=== PATIENT | female | born 1945 | race Caucasian/White ===

== ENCOUNTER → 2016-12-11 | Outpatient (CLI) | payer MEDICARE ==
[~2016-12-11] MED LIST: ACLI400A2 IH; AZIT500T PO; CA C1TAB26 PO; CETI10TA17 PO; DILT180C; DILT180C PO; FENO160T PO; FLUT16SP22 NS; FLUT1DIS26 IH; FLUT9.9S NS; FURO40TA4 PO; HYDR-34 PO; MECL-124 PO; MONT10TA21 PO; OMEP40CA36 PO; PANT20TA2 PO; PANT40TA; PANT40TA PO; POTA20TA8 PO; POTA8TAB PO; PRD20T PO; PRM25T PO; RANI300T4 PO; SLMFT1E INH; SPIR50TA27; TRAM50TA2 PO; VALS160T23 PO; VITA1200 SL
--- OUTSIDE RECORDS SUMMARY | 2016-12-11 13:52 | XMS REPORT | Continuity of Care Document ---
Author Author [facility] Organization [facility] Address Unknown Phone Unavailable Care Team Providers Care Scratch Finisher Name Role Phone CHARLES COLLINS DO PCP Insurance Providers Payer Name Policy Number Subscriber Name Relationship [employer] [id number] Anette Mcgrath 18 Self / Same As Patient [facility] [id number] Anette Mcgrath 18 Self / Same As Patient Advance Directives Directive Response Recorded Date/Time Advance Directives No 01/20/15 8:08am Health Care Power of Fire Pot Operator No 01/20/15 8:08am Organ Donor No 01/20/15 8:08am Resuscitation Status Full Code 01/20/15 8:08am Problems No known problems or medical conditions. Medications Medication Dose Route Sig Days/Qty Instructions Order Date Discontinued Date Status Spironolactone 07/27/09 11/29/12 Discontinued Pantoprazole Sodium 07/27/09 11/29/12 Discontinued Diltiazem Hcl 07/27/09 11/29/12 Discontinued Meclizine HCl 1 Tab PO QID PRN 20 Qty 07/27/09 11/29/12 Discontinued Promethazine HCl 1 Tab PO FOUR TIMES DAILY 14 Qty 07/27/09 11/29/12 Discontinued Azithromycin 500 Mg PO DAILY 11/29/12 01/13/15 Discontinued Prednisone 20 Mg PO DAILY 11/29/12 01/13/15 Discontinued Diltiazem HCl (Cardizem Cd) 1 Each PO DAILY 11/29/12 01/13/15 Discontinued Furosemide (Lasix) 1 Each PO DAILY 11/29/12 Active Pantoprazole Sodium 40 Mg PO DAILY 11/29/12 Active Ranitidine Hcl 300 Mg PO BEDTIME 11/29/12 Active Potassium Chloride 2 Tab PO DAILY 11/29/12 Active Fenofibrate (Lofibra) 1 Each PO DAILY 11/29/12 01/13/15 Discontinued Salmeterol Xinafoate/Fluticasone 0 INH DAILY ONE PUFF 11/29/12 Discontinued Ca Cmb No.1/Vit D3/B-6/Fa/B12 1 Each PO DAILY 11/29/12 Active Vitamin B Complex/Vit B12 1,200 Mcg SL DAILY 11/29/12 Active Fluticasone Propionate 1 [place] NS TWICE A DAY 11/29/12 01/13/15 Discontinued Acetaminophen/Hydrocodone Bitart 1 - 2 Ea PO NEEDED 12/05/12 Discontinued Valsartan 160 Mg PO DAILY 01/20/15 Active Fluticasone Propionate 9.9 Ml NS TWICE A DAY 01/20/15 Active Pantoprazole Sodium 40 Mg PO DAILY 90 Qty 01/20/15 Active Social History Social History Problem Response Recorded Date/Time Recent Foreign Travel No 01/20/2015 8:08am Smoking Status Never a Smoker 01/20/2015 8:04am Do you dip or chew tobacco? No 01/20/2015 8:04am Query Response Start Date Stop Date Smoking Status Never a Smoker Hospital Discharge Instructions No hospital discharge instructions. Plan of Care No plan of care. Functional Status No functional status results. Allergies, Adverse Reactions, Alerts Allergen Type Severity Reaction Status Last Updated Morphine Allergy Mild Active 07/27/09 NKANo Known Allergies Allergy Unknown Active 03/18/07 Immunizations Name Given Type Date of Pneumonia Vaccine 08/22/14 Historical Date of Influenza Vaccine 08/22/14 Historical Vital Signs Acute Vital Signs Vital Response Date/Time Temperature (Fahrenheit) 97.9 degrees F (97.6 - 99.5) Temperature (Calculated Celsius) 36.39796 degrees C (36.4 - 37.5) Temperature Source Tympanic Pulse Rate (adult) 93 bpm (60 - 90) Respiratory Rate 20 bpm (12 - 24) O2 Sat by Pulse Oximetry 94 % (88 - 100) Blood Pressure 151/92 mm Hg Pain Pain Intensity 0 Height (Feet) 5 feet Height (Inches) 1.00 inches Height (Calculated Centimeters) 154.111940 cm Weight (Pounds) 178 pounds Weight (Calculated Grams) 82932.443 gm Weight (Calculated Kilograms) 80.096278 kilograms Calculated BMI 36.46 Results Laboratory Results Test Name Result Units Flags Reference Collection Date/Time Result Date/ Time Comments Blood Urea Nitrogen 11 MG/DL 7-18 12/29/2014 12:30pm 12/29/2014 12: 52pm Creatinine 1.09 MG/DL 0.60-1.30 12/29/2014 12:30pm 12/29/2014 12:52pm BUN/Creatinine Ratio 10 12/29/2014 12:30pm 12/29/2014 12:52pm Estimat Glomerular Filtration Rate 50 12/29/2014 12:30pm 2014 12:52pm GFR INTERPRETIVE DATA UNITS FOR ESTIMATED GFR (eGFR): mL/min/1.73 M2 REFERENCE RANGE FOR ESTIMATED GFR (eGFR) eGFR NORMAL eGFR >60 MODERATELY DECREASED eGFR 30-59 SEVERLY DECREASED eGFR 15-29 KIDNEY FAILURE <15 (OR DIALYSIS) Procedures Procedure Status Date Provider(s) Diagnostic colonoscopy completed 01/20/15 JUAN HYATT MD Esophagogastroduodenoscopy (EGD) with dilation completed 01/20/15 JUAN HYATT MD Encounters Encounter Location Date/Time Registered [facility] 01/20/15 7:26am Discharged Recurring [facility] 01/14/15 1:00pm Registered Clinic [facility] 01/14/15 6:12am Registered Clinic [facility] 12/29/14 12:18pm
--- NOTE | 2016-12-11 14:15 | Diagnostic Imaging Report ---
PA and lateral views of the chest Indication: Cough and wheezing Findings: The lungs demonstrate minimal left basilar from opacity likely atelectasis. The heart size is normal. There is no effusion or pneumothorax The mediastinum and rosi appear unremarkable. Surgical clips in the upper abdomen seen. Impression: Minimal left basilar opacity left ureter to atelectasis. Dictated by: Dictated on workstation # [id number]
== END ==
LOC: RAD 13:48
PROVIDERS: ATTEND Nurse Practitioner
DX: R05 Cough (principal); R06.00 Dyspnea, unspecified; R06.2 Wheezing
CPT/HCPCS: 71020

== ENCOUNTER 2016-12-24 17:24 | Emergency (ER) | payer MEDICARE ==
[~2016-12-24] VITALS: Ht 152.4 cm; Wt 88.0 kg
[~2016-12-24 17:24] MED LIST changes: -TRAM50TA2 PO
--- NOTE | 2016-12-24 18:50 | ED Lower Extremity ---
General Chief Complaint: Lower Extremity Stated Complaint: R LEG INJ Nursing Triage Note: PT REPORTS YESTERDAY SHE WAS GETTING OUT OF HER CAR AND STEPPED BETWEEN CAR AND CURB. SHE STATES SHE DOESNT KNOW IF SHE TWISTED HER LEG OR WHAT HAPPENED, BUT IS NOW C/O L POSTERIOR THIGH PAIN WITH WEIGHT BEARING. Nursing Sepsis Screen: No Definite Risk Source: patient, family Exam Limitations: no limitations History of Present Illness Time seen by provider: 18:49 Initial Comments 71-year-old female patient presents to the emergency department with complaints of right posterior thigh pain and right leg pain after stepping out of her car yesterday. States she stepped between a curb and the car and is unsure she twisted the ankle/leg. Reports instant pain. Difficult to bear weight today. Onset: yesterday Pain/Injury Location: right leg, right thigh Method of Injury: unknown (possibly twisted the right leg.) Modifying Factors: Worse With Other (increased pain with ambulation) Allergies and Home Medications Allergies Coded Allergies: morphine (Unverified Allergy, Mild, 07/27/09) NKANo Known Allergies (Verified Allergy, Unknown, 03/18/07) Home Medications Aclidinium Lula 400 Mcg Aer.pow.ba, 1 PUFF IH BID, (Reported) Cetirizine HCl 10 Mg Tablet, 10 MG PO DAILY, (Reported) Fluticasone/Salmeterol 1 Each Blst.w.dev, 1 PUFF IH BID, (Reported) Furosemide 40 Mg Tablet, 40 MG PO DAILY, (Reported) Montelukast Sodium 10 Mg Tablet, 10 MG PO HS, (Reported) Omeprazole 40 Mg Capsule.dr, 40 MG PO BID, (Reported) Potassium Chloride 20 Meq Tab.er.prt, 20 MEQ PO DAILY, (Reported) Ranitidine Hcl 300 Mg Tablet, 300 MG PO HS, (Reported) Tramadol HCl 50 Mg Tablet, 50 MG PO Q4H PRN for PAIN, #14 Ref 0 Prescribed by: KAREN RODRIGUEZ on 12/24/161949 Valsartan 160 Mg Tablet, 160 MG PO DAILY, (Reported) Constitutional: no symptoms reported Respiratory: no symptoms reported Cardiovascular: no symptoms reported Musculoskeletal: see HPI, No back pain, joint pain, muscle pain, muscle stiffness, No neck pain Skin: No change in color, No lumps Psychiatric/Neurological: Denies Numbness, Denies Paresthesia, Denies Tingling , Denies Weakness All Other Systems Reviewed Negative Unless Noted: Yes (Negative excepted noted.) Past Svxacth-Odkejr-Zjsivh Hx Patient Social History Alcohol Use: Occasionally Uses Recreational Drug Use: No Smoking Status: Never a Smoker 2nd Hand Smoke Exposure: No Recent Foreign Travel: No Contact w/Someone Who Travel: No Recent Infectious Disease Expo: No Recent Hopitalizations: No Immunizations Up To Date Date of Pneumonia Vaccine: Aug 22, 2014 Date of Influenza Vaccine: Jun 24, 2015 Surgeries HX Surgeries: Yes (BILAT CARPAL TUNNEL) Surgeries: Bladder Surgery, Hysterectomy, Orthopedic, Tonsillectomy Respiratory Hx Respiratory Disorders: Yes Respiratory Disorders: COPD Cardiovascular Hx Cardiac Disorders: Yes Cardiac Disorders: Chronic Edema/Swelling, Hypertension Neurological Hx Neurological Disorders: No Reproductive System Hx Reproductive Disorders: No Genitourinary Hx Genitourinary Disorders: Yes Gastrointestinal Hx Gastrointestinal Disorders: No Musculoskeletal Hx Musculoskeletal Disorders: Yes (ARTHRITIS) Endocrine Hx Endocrine Disorders: No HEENT HX ENT Disorders: No Blood Transfusions Hx Blood Disorders: No Reviewed Nursing Assessment Reviewed/Agree w Nursing PMH: Yes Family Medical History Significant Family History: No Pertinent Family Hx Physical Exam Vital Signs Vital Sign - Last 12Hours 12/24/16 18:08 Temp 97.1 Pulse 85 Resp 18 B/P (MAP) 135/96 Pulse Ox 97 O2 Delivery Room Air Capillary Refill : Less Than 3 Seconds General Appearance: WD/WN, no apparent distress Cardiovascular: normal peripheral pulses Hips: bilateral hip non-tender, bilateral hip normal inspection, bilateral hip normal range of motion, bilateral hip no evidence of injury Legs: left leg non-tender, bilateral leg normal inspection, bilateral leg normal range of motion, bilateral leg no evidence of injury, right leg pain, right leg other (right posterior thigh tender to palpation with muscle spasm of the hamstring muscles. Right lower leg tender palpation over the lateral leg. Evidence of ecchymosis or swelling noted.) Knees: bilateral knee non-tender, bilateral knee normal inspection, bilateral knee normal range of motion, bilateral knee no evidence of injury Ankles: bilateral ankle non-tender, bilateral ankle normal inspection, bilateral ankle normal range of motion, bilateral ankle no evidence of injury Feet: bilateral foot non-tender, bilateral foot normal inspection, bilateral foot normal range of motion, bilateral foot no evidence of injury Neurologic/Tendon: normal sensation, normal motor functions, normal tendon functions, responds to pain, no evidence tendon injury Neurologic/Psychiatric: no motor/sensory deficits, alert, normal mood/affect, oriented x 3 Skin: normal color, warm/dry, No ecchymosis Progress/Results/Core Measures Results/Orders My Orders Orders - KAREN RODRIGUEZ Femur, Right, 2 Views (12/24/16 18:56) Tibia/Fibula, Right, 2 Views (12/24/16 18:56) Vital Signs/I&O Vital Sign - Last 12Hours 12/24/16 12/24/16 18:08 20:03 Temp 97.1 98.2 Pulse 85 99 Resp 18 18 B/P (MAP) 135/96 Pulse Ox 97 96 O2 Delivery Room Air Blood Pressure Mean: 109 Diagnostic Imaging Diagonstic Imaging: Xray Plain Films/CT/US/NM/MRI: femur Comments EXAMINATION: AP and lateral views of the right femur were obtained. FINDINGS: No fracture or dislocation. IMPRESSION: Negative right femur. Dictated by: Dictated on workstation # [id number] Reviewed: Reviewed by Me (radiology report reviewed by me) Diagonstic Imaging: Xray Plain Films/CT/US/NM/MRI: leg Comments EXAMINATION: AP and lateral views of the right tibia and fibula were obtained. FINDINGS: No fracture or dislocation. IMPRESSION: Negative right tibia and fibula. Dictated by: Dictated on workstation # [id number] Reviewed: Reviewed by Me (radiology report reviewed by me) Departure Communication Progress Notes Patient seen and evaluated. Patient denies need for pain medication at this time. 1954 Diagnostic findings discussed with the patient. Plan for discharge to home. Impression Impression: Primary Impression: Right hamstring muscle strain Qualified Codes: S76.311A - Strain of muscle, fascia and tendon of the posterior muscle group at thigh level, right thigh, initial encounter Disposition: HOME, SELF-CARE Condition: Improved Departure-Patient Inst. Decision time for Depature: 19:55 Referrals: CHARLES COLLINS DO (PCP/Family) Primary Care Physician Patient Instructions: Hamstring Muscle Strain (DC), Hamstring Stretches Add. Discharge Instructions: All discharge instructions reviewed with patient and/or family. Voiced understanding. Medications as prescribed. Tylenol extra strength [id number] as directed for pain. Ibuprofen 800 mg by mouth every 8 hours as needed for pain. Ice pack or heating pads as needed for pain. Elevate the right lower extremity on pillows. Follow-up with your primary care physician if no improvement in symptoms in 7- 10 days. Return to the emergency department for worsened symptoms or any other concerns. Scripts Tramadol HCl (Tramadol HCl) 50 Mg Tablet 50 MG PO Q4H Y for PAIN, #14 TAB 0 Refills Prov: KAREN RODRIGUEZ 12/24/16 KAREN RODRIGUEZ Dec 24, 2016 18:49
--- NOTE | 2016-12-24 19:40 | Diagnostic Imaging Report ---
INDICATION: Right lower leg pain. EXAMINATION: AP and lateral views of the right tibia and fibula were obtained. FINDINGS: No fracture or dislocation. IMPRESSION: Negative right tibia and fibula. Dictated by: Dictated on workstation # [id number]
--- NOTE | 2016-12-24 19:41 | Diagnostic Imaging Report ---
INDICATION: Right leg pain. EXAMINATION: AP and lateral views of the right femur were obtained. FINDINGS: No fracture or dislocation. IMPRESSION: Negative right femur. Dictated by: Dictated on workstation # [id number]
[2016-12-24] MEDS ORDERED: TRAM50TA2 PO (19:50)
[2016-12-24 20:03] VITALS: BP 137/94
--- OUTSIDE RECORDS SUMMARY | 2017-01-28 04:16 | XMS REPORT | Continuity of Care Document ---
Author Author [facility] Address Unknown Phone Unavailable Allergies Active Description Code Type Severity Reaction Onset Reported/Identified Relationship to Patient Clinical Status Yes NKANo Known Allergies NKA Miscellaneous Allergy Unknown N/ A 03/18/2007 Yes morphine [id number] Drug Allergy Mild N/A 07/27/2009 Yes morphine Drug Allergy 09/06/2012 Yes morphine Drug Allergy N/A N/A 09/06/2012 Medications Problems Date Dx Coded Attending Type Code Diagnosis Diagnosed By 03/25/2010 Ot 401.9 03/25/2010 Ot 530.81 03/25/2010 Ot 715.90 03/25/2010 Ot 722.52 03/25/2010 Ot 737.30 03/25/2010 Ot V57.1 09/06/2012 MANDY DECKER FIGUEROA A 274.9 GOUT 09/06/2012 RAJOTTE TUNNEL MINER, FIGUEROA A 491.21 BRONCHITIS AECB 09/06/2012 MANDY DECKER, FIGUEROA A 786.2 COUGH 09/06/2012 274.9 GOUT 09/06/2012 491.21 BRONCHITIS AECB 09/06/2012 786.2 COUGH 12/05/2012 Ot 575.0 ACUTE CHOLECYSTITIS 06/03/2013 477.9 RHINITIS 01/03/2014 SKYLAR PARK DO Ot 296.90 UNSPECIFIED EPISODIC MOOD DISORDER 01/03/2014 SKYLAR PARK DO Ot 327.23 OBSTRUCTIVE SLEEP APNEA (ADULT) (PEDIATR 01/03/2014 SKYLAR PARK DO Ot 401.9 HYPERTENSION NOS 03/25/2014 SKYLAR PARK DO Ot 327.23 OBSTRUCTIVE SLEEP APNEA (ADULT) (PEDIATR 08/19/2014 Ot 610.4 08/19/2014 Ot 611.72 08/19/2014 Ot 737.10 08/19/2014 Ot 737.30 08/19/2014 Ot 719.45 08/19/2014 Ot V76.12 08/19/2014 Ot 786.2 08/19/2014 Ot 793.1 08/19/2014 Ot 786.09 08/19/2014 Ot 786.2 08/19/2014 Ot V76.12 08/19/2014 Ot 715.94 08/19/2014 Ot 825.25 08/19/2014 Ot E000.8 08/19/2014 Ot E849.0 08/19/2014 Ot E928.9 08/19/2014 Ot 789.01 08/19/2014 Ot 789.00 08/19/2014 Ot 401.9 08/19/2014 Ot 574.20 08/19/2014 Ot V72.63 08/19/2014 Ot V72.83 08/19/2014 Ot V74.8 08/19/2014 ORENDER DO, CHARLES S Ot 496 08/19/2014 ORENDER DO, CHARLES S Ot 786.09 08/19/2014 OREND DO, CHARLES S Ot 786.2 08/19/2014 [facility] 7[facility].09 08/19/2014 [facility] Ot 786.2 08/19/2014 OREND DO, CHARLES S Ot 397.0 08/19/2014 OREND DO, CHARLES S Ot 424.0 08/19/2014 ORENDER DO, CHARLES S Ot 786.09 08/19/2014 ORENDER DO, CHARLES S Ot 719.47 08/19/2014 SAPNA GAMEZ Ot 427.9 08/19/2014 OREND DO, CHARLES S Ot 729.5 08/19/2014 [facility] Ot 729.81 08/19/2014 [facility]LES S Ot 786.09 08/19/2014 ORENDER DO, CHARLES S Ot 786.50 08/19/2014 ORENDER DO, CHARLES S Ot V64.3 08/19/2014 ORENDER DO, CHARLES S Ot 786.09 08/19/2014 ORENDER DO, CHARLES S Ot 786.50 08/19/2014 TERRY FIERRO, SCOTT Abrams Ot 782.3 08/19/2014 TERRY FIERRO, SCOTT Abrams Ot 845.00 08/19/2014 TERRY FIERRO, SCOTT Abrams Ot E928.9 08/25/2014 Ot 611.72 08/25/2014 Ot 737.10 08/25/2014 Ot 737.30 08/25/2014 Ot 719.45 08/25/2014 Ot V76.12 08/25/2014 Ot 786.2 08/25/2014 Ot 793.1 08/25/2014 Ot 786.09 08/25/2014 Ot 786.2 08/25/2014 Ot V76.12 08/25/2014 Ot 715.94 08/25/2014 Ot 825.25 08/25/2014 Ot E000.8 08/25/2014 Ot E849.0 08/25/2014 Ot E928.9 08/25/2014 Ot 789.01 08/25/2014 Ot 789.00 08/25/2014 Ot 401.9 08/25/2014 Ot 574.20 08/25/2014 Ot V72.63 08/25/2014 Ot V72.83 08/25/2014 Ot V74.8 08/25/2014 ORENDER DO, CHARLES S Ot 496 08/25/2014 ORENDER DO, CHARLES S Ot 786.09 08/25/2014 ORENDER DO, CHARLES S Ot 786.2 08/25/2014 ORENDER DO, CHARLES S Ot 786.09 08/25/2014 ORENDER DO, CHARLES S Ot 786.2 08/25/2014 ORENDER DO, CHARLES S Ot 397.0 08/25/2014 ORENDER DO, CHARLES S Ot 424.0 08/25/2014 ORENDER DO, CHARLES S Ot 786.09 08/25/2014 ORENDER DO, CHARLES S Ot 719.47 08/25/2014 SAPNA GAMEZ Ot 427.9 08/25/2014 ORENDER DO, CHARLES S Ot 729.5 08/25/2014 ORENDER DO, CHARLES S Ot 729.81 08/25/2014 ORENDER DO, CHARLES S Ot 786.09 08/25/2014 ORENDER DO, CHARLES S Ot 786.50 08/25/2014 ORENDER DO, CHARLES S Ot V64.3 08/25/2014 KARINA CORMIER, CHARLES S Ot 786.09 08/25/2014 CHEVY COLLINS DOLINE S Ot 786.50 08/25/2014 TERRY FIERRO, SCOTT Abrams Ot 782.3 08/25/2014 TERRY FIERRO, SCOTT Abrams Ot 845.00 08/25/2014 TERRY FIERRO, SCOTT Abrams Ot E928.9 08/26/2014 DENISEER CHEVY CORMIERLINE S Ot 722.52 08/26/2014 MARIANELANDER , CHARLES S Ot V57.1 09/03/2014 MARIANELANDER DO, CHARLES S Ot 722.52 09/03/2014 MARIANELANDER , CHARLES S Ot V57.1 10/09/2014 KARINA CORMIER CHARLES S Ot 722.52 LUMB/LUMBOSAC DISC DEGEN 10/09/2014 KARINA CROMIER CHARLES S Ot V57.1 PHYSICAL THERAPY NEC 10/21/2014 Ot 737.10 10/21/2014 Ot 737.30 10/21/2014 Ot 719.45 10/21/2014 Ot V76.12 10/21/2014 Ot 786.2 10/21/2014 Ot 793.1 10/21/2014 Ot 786.09 10/21/2014 Ot 786.2 10/21/2014 Ot V76.12 10/21/2014 Ot 715.94 10/21/2014 Ot 825.25 10/21/2014 Ot E000.8 10/21/2014 Ot E849.0 10/21/2014 Ot E928.9 10/21/2014 Ot 789.01 10/21/2014 Ot 789.00 10/21/2014 Ot 401.9 10/21/2014 Ot 574.20 10/21/2014 Ot V72.63 10/21/2014 Ot V72.83 10/21/2014 Ot V74.8 10/21/2014 DENISECONTRERAS CHARLES S Ot 496 10/21/2014 KARINA CHARLES S Ot 786.09 10/21/2014 MARIANELAGALICONTRERAS CHARLES S Ot 786.2 10/21/2014 KARINA CHARLES S Ot 786.09 10/21/2014 ORENDER DO, CHARLES S Ot 786.2 10/21/2014 ORENDER DO, CHARLES S Ot 397.0 10/21/2014 ORENDER DO, CHARLES S Ot 424.0 10/21/2014 ORENDER DO, CHARLES S Ot 786.09 10/21/2014 ORENDER DO, CHARLES S Ot 719.47 10/21/2014 SAPNA GAMEZ Ot 427.9 10/21/2014 ORENDER DO, CHARLES S Ot 729.5 10/21/2014 ORENDER DO, CHARLES S Ot 729.81 10/21/2014 ORENDER DO, CHARLES S Ot 786.09 10/21/2014 ORENDER DO, CHARLES S Ot 786.50 10/21/2014 ORENDER DO, CHARLES S Ot V64.3 10/21/2014 ORENDER DO, CHARLES S Ot 786.09 10/21/2014 ORENDER DO, CHARLES S Ot 786.50 10/21/2014 TERRY FIERRO, SCOTT P Ot 782.3 10/21/2014 TERRY FIERRO, SCOTT P Ot 845.00 10/21/2014 TERRY FIERRO, SCOTT P Ot E928.9 10/22/2014 [facility] S Ot 786.09 10/22/2014 ORENDER DO, CHARLES S Ot 786.50 10/22/2014 TERRY FIERRO, SCOTT P Ot 782.3 10/22/2014 TERRY FIERRO, SCOTT P Ot 845.00 10/22/2014 TERRY FIERRO, SCOTT P Ot E928.9 10/23/2014 [facility] CHARLES S Ot 786.09 10/23/2014 ORENDER DO, CHARLES S Ot 786.50 10/23/2014 TERRY FIERRO, SCOTT P Ot 782.3 10/23/2014 TERRY FIERRO, SCOTT P Ot 845.00 10/23/2014 TERRY FIERRO, SCOTT P Ot E928.9 10/23/2014 [facility] CHARLES S Ot 496 10/23/2014 [facility] CHARLES S Ot 496 10/26/2014 ORENDER DO, CHARLES S Ot 496 11/12/2014 Ot 737.10 11/12/2014 Ot 737.30 11/12/2014 Ot 719.45 11/12/2014 Ot V76.12 11/12/2014 Ot 786.2 11/12/2014 Ot 793.1 11/12/2014 Ot 786.09 11/12/2014 Ot 786.2 11/12/2014 Ot V76.12 11/12/2014 Ot 715.94 11/12/2014 Ot 825.25 11/12/2014 Ot E000.8 11/12/2014 Ot E849.0 11/12/2014 Ot E928.9 11/12/2014 Ot 789.01 11/12/2014 Ot 789.00 11/12/2014 Ot 401.9 11/12/2014 Ot 574.20 11/12/2014 Ot V72.63 11/12/2014 Ot V72.83 11/12/2014 Ot V74.8 11/12/2014 MARIANELANDER DO, CHARLES S Ot 496 11/12/2014 [facility] S Ot 786.09 11/12/2014 [facility]LES S Ot 786.2 11/12/2014 [facility]LES S Ot 786.09 11/12/2014 [facility]LES S Ot 786.2 11/12/2014 [facility]LES S Ot 397.0 11/12/2014 [facility]LES S Ot 424.0 11/12/2014 [facility]LES S Ot 786.09 11/12/2014 [facility]LES S Ot 719.47 11/12/2014 SAPNA GAMEZ Ot 427.9 11/12/2014 [facility] CHARLES S Ot 729.5 11/12/2014 [facility] CHARLES S Ot 729.81 11/12/2014 ORENDER DO, CHARLES S Ot 786.09 11/12/2014 ORENDER DO, CHARLES S Ot 786.50 11/12/2014 [facility] CHARLES S Ot V64.3 11/12/2014 [facility] CHARLES S Ot 786.09 11/12/2014 ORENDER DO, CHARLES S Ot 786.50 11/12/2014 TERRY FIERRO, SCOTT Abrams Ot 782.3 11/12/2014 TERRY FIERRO, SCOTT Abrams Ot 845.00 11/12/2014 TERRY FIERRO, SCOTT Abrams Ot E928.9 11/12/2014 ORENDER DO, CHARLES S Ot 496 11/19/2014 ORENDER DO, CHARLES S Ot 496 12/25/2014 Ot 786.09 01/20/2015 ORENDER DO, CHARLES S Ot 496 CHR AIRWAY OBSTRUCT NEC 01/20/2015 EDMAR FIERRO, UJAN Ot 401.9 HYPERTENSION NOS 01/20/2015 EDMAR FIERRO, JUAN Ot 455.0 INT HEMORRHOID W/O COMPL 01/20/2015 JUAN HYATT MD Ot 455.3 EXT HEMORRHOID W/O COMPL 01/20/2015 JUAN HYATT MD Ot 530.11 REFLUX ESOPHAGITIS 01/20/2015 EDMAR FIERRO, JUAN Ot 535.50 UNSP GASTRITIS GASTRODUODENITIS W/O ME 01/20/2015 EDMAR FIERRO, JUAN Ot 553.3 DIAPHRAGMATIC HERNIA 01/20/2015 EDMAR FIERRO, JUAN Ot 562.10 DIVERTICULOSIS COLON (W/O MENT OF HEMORR 01/20/2015 EDMAR FIERRO, JUAN Ot V76.51 SCREEN MAL NEOP-COLON 01/26/2015 EDMAR FIERRO, JUAN Ot 255.9 01/26/2015 EDMAR FIERRO, JUAN Ot 553.1 01/26/2015 JUAN HYATT MD Ot 571.8 01/26/2015 JUAN HYATT MD Ot 753.12 01/28/2015 MARIANELANDER DO, CHARLES S Ot 496 01/28/2015 ORENDER DO, CHARLES S Ot 496 01/28/2015 ORENDER DO, CHARLES S Ot 496 01/28/2015 ORENDER DO, CHARLES S Ot 496 01/28/2015 ORENDER DO, CHARLES S Ot 496 02/01/2015 MARIANELANDER DO, CHARLES S Ot 496 03/10/2015 JUAN HYATT MD Ot 255.9 03/10/2015 EDMAR FEIRRO, JUAN Ot 553.1 03/10/2015 EDMAR FIERRO, JUAN Ot 571.8 03/10/2015 EDMAR FIERRO, JUAN Ot 753.12 03/17/2015 ORENDER DO, CHARLES S Ot 496 04/09/2015 ORENDER DO, CHRALES S Ot 496 04/28/2015 ORENDER DO, CHARLES S Ot 496 CHR AIRWAY OBSTRUCT NEC 04/29/2015 LUCÍA NIEVES TUNNEL MINER Ot 278.00 04/29/2015 LUCÍA NIEVES TUNNEL MINER Ot 327.23 04/29/2015 LUCÍA NIEVES APRN Ot 496 04/29/2015 LUCÍA NIEVES APRN Ot 786.09 05/04/2015 ORENDER DO, CHARLES S Ot 496 05/04/2015 ORENDER DO, CHARLES S Ot 496 05/04/2015 ORENDER DO, CHARLES S Ot 496 05/04/2015 ORENDER DO, CHARLES S Ot 496 05/05/2015 ORENDER DO, CHARLES S Ot 496 05/12/2015 ORENDER DO, CHARLES S Ot 496 05/21/2015 LUCÍA NIEVES APRN Ot 278.00 05/21/2015 LUCÍA NIEVES TUNNEL MINER Ot 327.23 05/21/2015 LUCÍA NIEVES APRN Ot 496 05/21/2015 LUCÍA NIEVES TUNNEL MINER Ot 786.09 06/15/2015 ORENDER DO, CHARLES S Ot 496 06/23/2015 ORENDER DO, CHARLES S Ot 496 CHR AIRWAY OBSTRUCT NEC 07/21/2015 ORENDER DO, CHARLES S Ot Z12.31 10/01/2015 ORENDER DO, CHARLES S Ot R06.00 10/01/2015 ORENDER DO, CHARLES S Ot R07.9 12/19/2015 MONIQUE LEVI APRN Ot E86.9 VOLUME DEPLETION, UNSPECIFIED 12/19/2015 MONIQUE LEVI TUNNEL MINER Ot J44.9 CHRONIC OBSTRUCTIVE PULMONARY DISEASE, U 12/19/2015 LEVI, PETER J TUNNEL MINER Ot R00.0 TACHYCARDIA, UNSPECIFIED 12/19/2015 AMITA MONIQUE Marnie TUNNEL MINER Ot R06.00 DYSPNEA, UNSPECIFIED 12/21/2015 MONIQUE LEVI TUNNEL MINER Ot E86.9 12/21/2015 MONIQUE LEVI TUNNEL MINER Ot J44.9 12/21/2015 MONIQUE LEVI TUNNEL MINER Ot R00.0 12/21/2015 MONIQUE LEVI TUNNEL MINER Ot R06.00 07/04/2016 Ot 786.2 COUGH 07/04/2016 Ot 793.1 NOSP (ABN) FINDINGS ON RADIOLOGICAL OT 07/04/2016 Ot 786.09 RESPIRATORY ABNORM NEC 07/04/2016 Ot 786.2 COUGH 07/04/2016 Ot V76.12 OTH SCREEN MAMMO-MALIGN NEOPLASM OF MARGARETH 07/04/2016 Ot 715.94 OSTEOARTHROS NOS-HAND 07/04/2016 Ot 825.25 FX METATARSAL-CLOSED 07/04/2016 Ot E000.8 OTHER EXTERNAL CAUSE STATUS 07/04/2016 Ot E849.0 ACCIDENT IN HOME 07/04/2016 Ot E928.9 ACCIDENT NOS 07/04/2016 Ot 789.01 ABDOMINAL PAIN, RIGHT UPPER QUADRANT 07/04/2016 Ot 789.00 ABDOMINAL PAIN, UNSPECIFIED SITE 07/04/2016 Ot 401.9 HYPERTENSION NOS 07/04/2016 Ot 574.20 CHOLELITHIASIS NOS 07/04/2016 Ot V72.63 PRE-PROCEDURAL LABORATORY EXAMINATION 07/04/2016 Ot V72.83 EXAM PRE-OPERATIVE NEC 07/04/2016 Ot V74.8 SCREEN-BACTERIAL DIS NEC 07/04/2016 CHARLES COLLINS DO S Ot 496 CHR AIRWAY OBSTRUCT NEC 07/04/2016 CHEVY COLLINS DOLINE S Ot 786.09 RESPIRATORY ABNORM NEC 07/04/2016 ANDREEA COLLINS DOQUELINE S Ot 786.2 COUGH 07/04/2016 ANDREEA COLLINS DOQUELINE S Ot 786.09 RESPIRATORY ABNORM NEC 07/04/2016 ANDREEA COLLINS DOQUELINE S Ot 786.2 COUGH 07/04/2016 ANDREEA COLLINS DOQUELINE S Ot 397.0 TRICUSPID VALVE DISEASE 07/04/2016 CHEVY COLLINS DOLINE S Ot 424.0 MITRAL VALVE DISORDER 07/04/2016 ORENDER DO, CHARLES S Ot 786.09 RESPIRATORY ABNORM NEC 07/04/2016 MARIANELANDCONTRERAS CORMIER, CHARLES S Ot 719.47 JOINT PAIN-ANKLE 07/04/2016 ABYSUNILSAPNA FOX BARON Ot 427.9 CARDIAC DYSRHYTHMIA NOS 07/04/2016 MARIANELANDER , CHARLES S Ot 729.5 PAIN IN LIMB 07/04/2016 MARIANELANDER DO, CHARLES S Ot 729.81 SWELLING OF LIMB 07/04/2016 MARIANELANDER DO, CHARLES S Ot 786.09 RESPIRATORY ABNORM NEC 07/04/2016 MARIANELANDER DO, CHARLES S Ot 786.50 CHEST PAIN NOS 07/04/2016 KARINA CORMIER, CHARLES S Ot V64.3 NO PROC FOR REASONS NEC 07/04/2016 KARINA CORMIER, CHARLES S Ot 786.09 RESPIRATORY ABNORM NEC 07/04/2016 KARINA CORMIER, CHARLES S Ot 786.50 CHEST PAIN NOS 07/04/2016 TERRY FIERRO, SCOTT Abrams Ot 782.3 EDEMA 07/04/2016 TERRY FIERRO, SCOTT Abrams Ot 845.00 SPRAIN OF ANKLE NOS 07/04/2016 SCOTT STEWART MD Ot E928.9 ACCIDENT NOS 07/04/2016 Ot 786.09 RESPIRATORY ABNORM NEC 07/04/2016 EDMAR FIERRO, JUAN Ot 255.9 ADRENAL DISORDER N0S 07/04/2016 EDMAR FIERRO, JUAN Ot 553.1 UMBILICAL HERNIA 07/04/2016 EDMAR FIERRO, JUAN Ot 571.8 CHRONIC LIVER DIS NEC 07/04/2016 EDMAR FIERRO, JUAN Ot 753.12 POLYCYSTIC KIDNEY, UNSPECIFIED TYPE 07/04/2016 EDMAR FIERRO, JUAN Ot V72.84 EXAM PRE-OPERATIVE NOS 07/04/2016 LUCÍA NIEVES APRN Ot 278.00 OBESITY, NOS 07/04/2016 LUCÍA NIEVES TUNNEL MINER Ot 327.23 OBSTRUCTIVE SLEEP APNEA (ADULT) ( PEDIATR 07/04/2016 LUCÍA NIEVES E TUNNEL MINER Ot 496 CHR AIRWAY OBSTRUCT NEC 07/04/2016 LUCÍA NIEVES TUNNEL MINER Ot 786.09 RESPIRATORY ABNORM NEC 07/04/2016 KARINA CORMIER, CHARLES S Ot Z12.31 ENCNTR SCREEN MAMMOGRAM FOR MALIGNANT NE 07/04/2016 ORENDER DO, CHARLES S Ot R06.00 DYSPNEA, UNSPECIFIED 07/04/2016 ORENDER DO, CHARLES S Ot R07.9 CHEST PAIN, UNSPECIFIED 07/05/2016 ORENDER DO, CHARLES S Ot Z12.31 ENCNTR SCREEN MAMMOGRAM FOR MALIGNANT NE 07/05/2016 ORENDER DO, CHARLES S Ot Z12.31 ENCNTR SCREEN MAMMOGRAM FOR MALIGNANT NE 07/10/2016 ORENDER DO, CHARLES S Ot Z12.31 ENCNTR SCREEN MAMMOGRAM FOR MALIGNANT NE 07/13/2016 ORENDER DO, CHARLES S Ot Z12.31 ENCNTR SCREEN MAMMOGRAM FOR MALIGNANT NE 12/11/2016 ORENDER DO, CHARLES S Ot Z12.31 ENCNTR SCREEN MAMMOGRAM FOR MALIGNANT NE 12/11/2016 ORENDER DO, CHARLES S Ot R06.00 DYSPNEA, UNSPECIFIED 12/11/2016 ORENDER DO, CHARLES S Ot R07.9 CHEST PAIN, UNSPECIFIED 12/11/2016 ORENDER DO, CHARLES S Ot Z12.31 ENCNTR SCREEN MAMMOGRAM FOR MALIGNANT NE 12/12/2016 KERI GUTIÉRREZ TUNNEL MINER Ot R05 COUGH 12/12/2016 KERI GUTIÉRREZ TUNNEL MINER Ot R06.00 DYSPNEA, UNSPECIFIED 12/12/2016 MARLA KERI N TUNNEL MINER Ot R06.2 WHEEZING 12/12/2016 KERI GUTIÉRREZ TUNNEL MINER Ot R05 COUGH 12/12/2016 KERI GUTIÉRREZ TUNNEL MINER Ot R06.00 DYSPNEA, UNSPECIFIED 12/12/2016 KERI GUTIÉRREZ TUNNEL MINER Ot R06.2 WHEEZING 12/24/2016 KAREN VEGA Ot I10 ESSENTIAL (PRIMARY) HYPERTENSION 12/24/2016 KAREN VEGA Ot J44.9 CHRONIC OBSTRUCTIVE PULMONARY DISEASE, U 12/24/2016 KAREN VEGA Ot S76.311A STRAIN MSL/FASC/TND POST GRP AT THI LEV, 12/24/2016 KAREN VEGA Ot S86.901A UNSP INJ UNSP MUSC/TEND AT LOWER LEG LEV 12/24/2016 KAREN VEGA Ot X50.9XXA OTHER AND UNSPECIFIED OVREXRTN OR STRNOU 12/24/2016 KAREN VEGA Ot Y92.414 LOCAL RESIDENTIAL OR BUSINESS STREET 12/24/2016 KAREN VEGA Ot Y99.8 OTHER EXTERNAL CAUSE STATUS 12/24/2016 KAREN VEGA Ot Z79.899 OTHER BUNDLE BREAKER (CURRENT) DRUG THERAPY 12/26/2016 KAREN VEGA Ot I10 ESSENTIAL (PRIMARY) HYPERTENSION 12/26/2016 KAREN VEGA Ot J44.9 CHRONIC OBSTRUCTIVE PULMONARY DISEASE, U 12/26/2016 KAREN VEGA Ot S76.311A STRAIN MSL/FASC/TND POST GRP AT THI LEV, 12/26/2016 KAREN VEGA Ot S86.901A UNSP INJ UNSP MUSC/TEND AT LOWER LEG LEV 12/26/2016 KAREN VEGA Ot X50.9XXA OTHER AND UNSPECIFIED OVREXRTN OR STRNOU 12/26/2016 KAREN VEGA Ot Y92.414 LOCAL RESIDENTIAL OR BUSINESS STREET 12/26/2016 KAREN VEGA Ot Y99.8 OTHER EXTERNAL CAUSE STATUS 12/26/2016 KAREN VEGA Ot Z79.899 OTHER BUNDLE BREAKER (CURRENT) DRUG THERAPY 01/03/2017 KERI GUTIÉRREZ TUNNEL MINER Ot R05 COUGH 01/03/2017 KERI GUTIÉRREZ TUNNEL MINER Ot R06.00 DYSPNEA, UNSPECIFIED 01/03/2017 KERI GUTIÉRREZ TUNNEL MINER Ot R06.2 WHEEZING 01/11/2017 KERI GUTIÉRREZ TUNNEL MINER Ot R05 COUGH 01/11/2017 KERI GUTIÉRREZ TUNNEL MINER Ot R06.00 DYSPNEA, UNSPECIFIED 01/11/2017 KERI GUTIÉRREZ TUNNEL MINER Ot R06.2 WHEEZING 01/15/2017 Ot V76.12 OTH SCREEN MAMMO-MALIGN NEOPLASM OF MARGARETH 01/15/2017 Ot 715.94 OSTEOARTHROS NOS-HAND 01/15/2017 Ot 825.25 FX METATARSAL-CLOSED 01/15/2017 Ot E000.8 OTHER EXTERNAL CAUSE STATUS 01/15/2017 Ot E849.0 ACCIDENT IN HOME 01/15/2017 Ot E928.9 ACCIDENT NOS 01/15/2017 Ot 789.01 ABDOMINAL PAIN, RIGHT UPPER QUADRANT 01/15/2017 Ot 789.00 ABDOMINAL PAIN, UNSPECIFIED SITE 01/15/2017 Ot 401.9 HYPERTENSION NOS 01/15/2017 Ot 574.20 CHOLELITHIASIS NOS 01/15/2017 Ot V72.63 PRE-PROCEDURAL LABORATORY EXAMINATION 01/15/2017 Ot V72.83 EXAM PRE-OPERATIVE NEC 01/15/2017 Ot V74.8 SCREEN-BACTERIAL DIS NEC 01/15/2017 KARINA CORMIER CHARLES S Ot 496 CHR AIRWAY OBSTRUCT NEC 01/15/2017 KARINA CORMIER CHARLES S Ot 786.09 RESPIRATORY ABNORM NEC 01/15/2017 KARINA CORMIER CHARLES S Ot 786.2 COUGH 01/15/2017 KARINA CORMIER CHARLES S Ot 786.09 RESPIRATORY ABNORM NEC 01/15/2017 KARINA CORMIER CHARLES S Ot 786.2 COUGH 01/15/2017 KARINA CORMIER CHARLES S Ot 397.0 TRICUSPID VALVE DISEASE 01/15/2017 ANDREEA COLLINS DOQUELINE S Ot 424.0 MITRAL VALVE DISORDER 01/15/2017 KARINA CORMIER, CHARLES S Ot 786.09 RESPIRATORY ABNORM NEC 01/15/2017 MARIANELANASIMA CORMIER CHARLES S Ot 719.47 JOINT PAIN-ANKLE 01/15/2017 SAPNA GAMEZ Ot 427.9 CARDIAC DYSRHYTHMIA NOS 01/15/2017 KARINA CORMIER CHARLES S Ot 729.5 PAIN IN LIMB 01/15/2017 KARINA CORMIER CHARLES S Ot 729.81 SWELLING OF LIMB 01/15/2017 ANDREEA COLLINS DOQUELINE S Ot 786.09 RESPIRATORY ABNORM NEC 01/15/2017 KARINA CORMIER, CHARLES S Ot 786.50 CHEST PAIN NOS 01/15/2017 CHEVY COLLINS DOLINE S Ot V64.3 NO PROC FOR REASONS NEC 01/15/2017 KARINA CORMIER CHARLES S Ot 786.09 RESPIRATORY ABNORM NEC 01/15/2017 ANDREEA COLLINS DOQUELINE S Ot 786.50 CHEST PAIN NOS 01/15/2017 SCOTT STEWART MD Ot 782.3 EDEMA 01/15/2017 SCOTT STEWART MD Ot 845.00 SPRAIN OF ANKLE NOS 01/15/2017 TERRY FIERRO, SCOTT Abrams Ot E928.9 ACCIDENT NOS 01/15/2017 Ot 786.09 RESPIRATORY ABNORM NEC 01/15/2017 JUAN HYATT MD Ot 255.9 ADRENAL DISORDER N0S 01/15/2017 JUAN HYATT MD Ot 553.1 UMBILICAL HERNIA 01/15/2017 JUAN HYATT MD Ot 571.8 CHRONIC LIVER DIS NEC 01/15/2017 JUAN HYATT MD Ot 753.12 POLYCYSTIC KIDNEY, UNSPECIFIED TYPE 01/15/2017 JUAN HYATT MD Ot V72.84 EXAM PRE-OPERATIVE NOS 01/15/2017 LUCÍA NIEVES APRN Ot 278.00 OBESITY, NOS 01/15/2017 LUCÍA NIEVES APRN Ot 327.23 OBSTRUCTIVE SLEEP APNEA (ADULT) ( PEDIATR 01/15/2017 LUCÍA NIEVES APRN Ot 496 CHR AIRWAY OBSTRUCT NEC 01/15/2017 LUCÍA NIEVES APRN Ot 786.09 RESPIRATORY ABNORM NEC 01/15/2017 CHARLES COLLINS DO S Ot Z12.31 ENCNTR SCREEN MAMMOGRAM FOR MALIGNANT NE 01/15/2017 CHARLES COLLINS DO S Ot R06.00 DYSPNEA, UNSPECIFIED 01/15/2017 CHARLES COLLINS DO S Ot R07.9 CHEST PAIN, UNSPECIFIED 01/15/2017 DENISEER ANDREEA CORMIERCHARLES S Ot Z12.31 ENCNTR SCREEN MAMMOGRAM FOR MALIGNANT NE 01/15/2017 KERI GUTIÉRREZ APRN Ot R05 COUGH 01/15/2017 KERI GUTIÉRREZ APRN Ot R06.00 DYSPNEA, UNSPECIFIED 01/15/2017 KERI GUTIÉRREZ APRN Ot R06.2 WHEEZING 01/17/2017 KERI GUTIÉRREZ APRN Ot J44.9 CHRONIC OBSTRUCTIVE PULMONARY DISEASE, U 01/17/2017 KERI GUTIÉRREZ APRN Ot R05 COUGH Procedures Code [place] [id number] OXIM[employer]RY 2011 Results Encounters ACCT No. Visit Date/Time Discharge Status Pt. Type Provider Facility Loc./Unit Complaint [id number] 09/06/2012 08:26:00 09/06/2012 23: 59:59 CLS Outpatient FIGUEROA GALVAN APRN [id number] 06/03/2013 08:49:00 Document Registration
== END 2016-12-24 20:00 | disposition home or self-care (01) ==
LOC: EDUNIT# 17:24 → ER 17:28
DX: S76.311A Strain of muscle, fascia and tendon of the posterior muscle group at thigh level, right thigh, initial encounter (principal); J44.9 Chronic obstructive pulmonary disease, unspecified; I10 Essential (primary) hypertension; Z79.899 Other long term (current) drug therapy; X50.9XXA Other and unspecified overexertion or strenuous movements or postures, initial encounter; Y92.414 Local residential or business street as the place of occurrence of the external cause; Y99.8 Other external cause status
CPT/HCPCS: 73552; 73590; 99283

== ENCOUNTER → 2017-01-15 | Outpatient (CLI) | payer MEDICARE ==
[~2017-01-15] MED LIST changes: +TRAM50TA2 PO
--- NOTE | 2017-01-15 19:24 | Diagnostic Imaging Report ---
PA and lateral views of the chest. INDICATION: Cough and shortness of breath. COPD. COMPARISON: 12/11/16. FINDINGS: There are minimal left basilar atelectatic changes. The heart size is normal. No effusion or pneumothorax. The mediastinum and rosi appear unremarkable. IMPRESSION: Minimal left basilar atelectasis. Dictated by: Dictated on workstation # [id number]
== END ==
LOC: RAD 15:46
PROVIDERS: ATTEND Nurse Practitioner
DX: R05 Cough (principal); J44.9 Chronic obstructive pulmonary disease, unspecified
CPT/HCPCS: 71020

== ENCOUNTER 2017-03-22 12:49 | Outpatient (RCR) | payer MEDICARE | END 2017-03-22 14:47 | disposition home or self-care (01) | PROVIDERS: ATTEND Family Medicine | DX: M51.16 Intervertebral disc disorders with radiculopathy, lumbar region (principal) ==

== ENCOUNTER 2017-05-04 12:14 | Emergency (ER) | payer MEDICARE ==
[~2017-05-04] VITALS: Ht 152.4 cm; Wt 93.9 kg
[2017-05-04] MEDS ORDERED: DULO60CA58 (12:28)
[2017-05-04] MEDS ORDERED: GABA-488 (12:28)
[2017-05-04] MEDS ORDERED: HYDROcodone/APAP 5 MG/325 MG (LORTAB) TAB PO STA (12:31)
--- NOTE | 2017-05-04 12:37 | ED Lower Extremity ---
General Chief Complaint: Lower Extremity Stated Complaint: POSS BLOOD CLOT IN LT LEG PER DR WEBER OFF History of Present Illness Time seen by provider: 12:25 Initial Comments Patient reports on 05/12/17 she was evaluated by Dr. Weber for left lower extremity pain. There is concerns over a possible DVT and she had labs. Dr. Weber's office contacted her today and recommended she follow up in the emergency department for DVT evaluation based on the lab results. She is mainly complaining of pain in the lateral aspect of the left hamstring, no calf pain. She does report occasionally having cold feelings in both feet, she has had more pedal edema recently and stopped her Lasix due to side effects. She denies any paresthesias or radicular symptoms in her lower extremities. She did have a right hamstring injury in the last 6 months. She denies any recent extended sedentary situations, she does all of her own ADLs, she has had no recent travel. She is not taking any blood thinners or aspirin products. D-dimer from Mag lab on 05/04/17 281. Onset: other (05/02/17) Pain/Injury Location: left thigh, left foot, left ankle Method of Injury: unknown Modifying Factors: Improves With Rest Allergies and Home Medications Allergies Coded Allergies: morphine (Unverified Allergy, Mild, 07/27/09) NKANo Known Allergies (Verified Allergy, Unknown, 03/18/07) Home Medications Aclidinium [place] 400 Mcg Aer.pow.ba, 1 PUFF IH BID, (Reported) Cetirizine HCl 10 Mg Tablet, 10 MG PO DAILY, (Reported) Duloxetine HCl 60 Mg Capsule., #30 (Reported) Fluticasone/Salmeterol 1 Each Blst.w.dev, 1 PUFF IH BID, (Reported) Furosemide 40 Mg Tablet, 40 MG PO DAILY, (Reported) Gabapentin 300 Mg Capsule, #60 (Reported) Magnesium Oxide 400 Mg Tablet, 800 MG PO DAILY, #20 Ref 0 Prescribed by: EDITH AREVALO on 05/04/17 1310 Montelukast Sodium 10 Mg Tablet, 10 MG PO HS, (Reported) Omeprazole 40 Mg Capsule.dr, 40 MG PO BID, (Reported) Potassium Chloride 20 Meq Tab.er.prt, 20 MEQ PO DAILY, (Reported) Ranitidine Hcl 300 Mg Tablet, 300 MG PO HS, (Reported) Tramadol HCl 50 Mg Tablet, 50 MG PO Q4H PRN for PAIN, #14 Ref 0 Prescribed by: KAREN RODRIGUEZ on 12/24/161949 Valsartan 160 Mg Tablet, 160 MG PO DAILY, (Reported) Constitutional: no symptoms reported, see HPI Respiratory: see HPI, dyspnea on exertion Cardiovascular: no symptoms reported, see HPI Genitourinary: no symptoms reported, see HPI Musculoskeletal: see HPI, muscle pain (left lower extremity) Skin: see HPI, other (swelling left lower extremity) All Other Systems Reviewed Negative Unless Noted: Yes Past Gjdxedh-Dmxcoh-Jvvlhj Hx Patient Social History Alcohol Use: Denies Use Recreational Drug Use: No Smoking Status: Never a Smoker 2nd Hand Smoke Exposure: No Recent Foreign Travel: No Contact w/Someone Who Travel: No Recent Hopitalizations: No Immunizations Up To Date Date of Pneumonia Vaccine: Aug 22, 2014 Date of Influenza Vaccine: Jun 24, 2015 Surgeries HX Surgeries: Yes (BILAT CARPAL TUNNEL) Surgeries: Bladder Surgery, Hysterectomy, Orthopedic, Tonsillectomy Respiratory Hx Respiratory Disorders: Yes Respiratory Disorders: COPD Cardiovascular Hx Cardiac Disorders: Yes Cardiac Disorders: Chronic Edema/Swelling, Hypertension Neurological Hx Neurological Disorders: No Reproductive System Hx Reproductive Disorders: No Genitourinary Hx Genitourinary Disorders: Yes Gastrointestinal Hx Gastrointestinal Disorders: No Musculoskeletal Hx Musculoskeletal Disorders: Yes (ARTHRITIS) Endocrine Hx Endocrine Disorders: No HEENT HX ENT Disorders: No Blood Transfusions Hx Blood Disorders: No Reviewed Nursing Assessment Reviewed/Agree w Nursing PMH: Yes Family Medical History Significant Family History: No Pertinent Family Hx Physical Exam Vital Signs Vital Sign - Last 12Hours 05/04/17 12:18 Temp 98.9 Pulse 100 Resp 18 B/P (MAP) 136/84 Pulse Ox 96 O2 Delivery Room Air Capillary Refill : General Appearance: WD/WN, no apparent distress HEENT: normal ENT inspection, TMs normal, pharynx normal Neck: non-tender, full range of motion, supple, normal inspection Cardiovascular: normal peripheral pulses, regular rate, rhythm, No no edema (1 + bilateral nonpitting edema), no JVD, no murmur, other (dorsalis pedis pulses 2 + and symmetric, posterior tibialis 1+ and symmetric) Respiratory: chest non-tender, lungs clear, normal breath sounds, other (SOA, mild with activity and rest, chronic and unchanged per patient.) Gastrointestinal: normal bowel sounds, non tender, soft Legs: bilateral leg swelling, bilateral leg other (multiple varicosities bilateral lower extremities) Knees: left knee non-tender, left knee normal range of motion, left knee no evidence of injury, left knee bone tenderness (lateral aspect at the joint line. ), left knee joint effusion (trace), left knee pain (lateral joint line), left knee swelling (popliteal cyst) Ankles: bilateral ankle non-tender, bilateral ankle normal range of motion, bilateral ankle no evidence of injury, bilateral ankle swelling (1+ nonpitting edema) Feet: bilateral foot non-tender, bilateral foot normal range of motion, bilateral foot no evidence of injury Neurologic/Psychiatric: no motor/sensory deficits, alert, normal mood/affect, oriented x 3 Skin: normal color, warm/dry Lymphatic: no adenopathy Progress/Results/Core Measures Results/Orders My Orders Orders - EDITH AREVALO Venous Lower Ext Lt (05/04/17 12:31) Hydrocodone/Apap 5/325 Tablet (Lortab 5 (05/04/17 12:31) Magnesium Oxide Tablet (Mag Ox Tablet) (05/04/17 13:00) Magnesium Oxide Tablet (Mag Ox Tablet) (05/04/17 13:00) Medications Given in ED Current Medications Medications Dose Ordered Sig/Yasmin Route Start Time Stop Time Status Last Admin Dose Admin Magnesium Oxide 400 mg ONCE ONCE PO 05/04/17 13:00 05/04/17 13:01 DC 05/04/17 13:00 400 MG Magnesium Oxide 400 mg ONCE ONCE PO 05/04/17 13:00 05/04/17 13:01 DC 05/04/17 13:01 400 MG Vital Signs/I&O Vital Sign - Last 12Hours 05/04/17 05/04/17 12:18 13:15 Temp 98.9 98.9 Pulse 100 100 Resp 18 18 B/P (MAP) 136/84 Pulse Ox 96 96 O2 Delivery Room Air Progress Note : Time: 12:25 Progress Note Initial evaluation completed, recommended venous ultrasound left lower extremity and reevaluation. Hydrocodone/APAP 5/325 mg 1 by mouth now for pain. 1310 patient reports decreased pain. Venous ultrasound was negative for DVT, results reviewed with patient. Magnesium oxide 400 mg 2 by mouth for hypo- magnesium. Labs from mag lab drawn on 05/02/17 showed a magnesium of 0.8. CBC thyroid all within normal ESR 32 and d-dimer 281. Discussed with patient that her pain in the left lower extremity could be related to the low magnesium level. 1320 discharge planning reviewed with the patient and her daughter, with recommendation for continuing magnesium through the weekend, all up with Dr. WEBER next week. We'll go ahead and start the patient on enteric coated baby aspirin daily. Departure Impression Impression: Primary Impression: Synovial cyst of popliteal space [Dyson], left knee Additional Impressions: Hypomagnesemia Myalgia Disposition: HOME, SELF-CARE Condition: Improved Departure-Patient Inst. Decision time for Depature: 13:00 Referrals: CHARLES WEBER DO (PCP/Family) Primary Care Physician Patient Instructions: Low Magnesium Level (DC), Muscle and Bone Pain (DC) Add. Discharge Instructions: Increase oral hydration, one bottle of water every 2-3 hours while awake. Take magnesium as directed. Call Dr. Weber's office on Sunday for follow-up early next week and lab follow -up. Return to emergency department for increased pain in the lower extremities, fever greater than 101, increased shortness of air, or new problems. Enteric-coated aspirin 81 mg 1 daily. Activity as tolerated. Tylenol 650 mg every 6 hours as needed for pain. All discharge instructions reviewed with patient and/or family. Voiced understanding. Scripts Magnesium Oxide (Magnesium Oxide) 400 Mg Tablet 800 MG PO DAILY, #20 TAB 0 Refills Prov: EDITH AREVALO 05/04/17 Copy Copies To 1: CHARLES WEBER AMY ARNP May 04, 2017 12:37
[2017-05-04] MEDS ORDERED: MAGNESIUM OXIDE (MAG-OX)400 MG TAB PO ONE ×2 (13:00)
[2017-05-04] MEDS ORDERED: MAGN400T6 PO (13:10)
[2017-05-04 13:15] VITALS: BP 136/84
--- NOTE | 2017-05-04 13:41 | Diagnostic Imaging Report ---
PROCEDURE: US left lower extremity venous. TECHNIQUE: Multiple real-time grayscale images were obtained over the left lower extremity in various projections. Additional duplex Doppler and color Doppler images were also obtained. INDICATION: Left leg pain and swelling. COMPARISON: 12/31/2013. FINDINGS: The left common femoral, femoral and popliteal veins are patent without evidence of DVT. Visualized proximal aspects of the greater saphenous, deep femoral, posterior tibial and peroneal veins are also patent. All of the evaluated deep venous structures demonstrate normal compressibility and waveform augmentation where applicable. Anechoic fluid collection posterior to the knee in the popliteal fossa likely represents a small Dyson's cyst, and measures 3.5 x 1.8 x 1.8 cm. IMPRESSION: No left lower extremity deep venous thrombosis (DVT). Dictated by: Dictated on workstation # [id number]
== END 2017-05-04 13:15 | disposition home or self-care (01) ==
LOC: EDUNIT# 12:14 → ER 12:16
DX: M71.22 Synovial cyst of popliteal space [Baker], left knee (principal); M79.1 Myalgia; E83.42 Hypomagnesemia; J44.9 Chronic obstructive pulmonary disease, unspecified; I10 Essential (primary) hypertension; M19.90 Unspecified osteoarthritis, unspecified site; Z90.710 Acquired absence of both cervix and uterus
CPT/HCPCS: 99283

== ENCOUNTER → 2017-05-31 | Outpatient (CLI) | payer MEDICARE, BC ==
[~2017-05-31] MED LIST changes: +DULO60CA58; +GABA-488; +MAGN400T6 PO
== END ==
LOC: RAD 09:20
PROVIDERS: ATTEND Family Medicine
DX: R06.00 Dyspnea, unspecified (principal); R00.0 Tachycardia, unspecified
CPT/HCPCS: 93306

== ENCOUNTER → 2017-07-04 | Outpatient (CLI) | payer MEDICARE, BC ==
[~2017-07-04] VITALS: Ht 152.4 cm; Wt 97.1 kg
[~2017-07-04] MED LIST changes: +REGADENOSON 0.4 MG/5 ML SYR (LEXISCAN) IV ONE
[2017-07-04] MEDS: CATHETER FLUSH 10 ML SYR IV PRN ×2 (12:57→14:13)
[2017-07-04 14:07] VITALS: BP 151/82
--- NOTE | 2017-07-06 01:27 | STRESS TEST ---
DATE OF SERVICE: 07/04/2017 LEXISCAN MYOVIEW STRESS TEST REPORT REFERRING PHYSICIAN: Dr. Weber. Baseline heart rate is 79, baseline blood pressure is 150/80. Baseline EKG is sinus rhythm with no ischemic changes. In summary, the patient was injected with 9.65 mCi of technetium-99 Myoview and the resting images were obtained, then the patient received 0.4 mg of Lexiscan followed by 27.8 mCi of technetium-99 Myoview. Throughout the test, there were no EKG changes. The resting and stressed images were reviewed and compared in the short axis, horizontal long axis, and vertical long axis views. Review of the images showed breast attenuation affecting the quality of the images. There is mild decreased uptake at the mid to apical anterior wall, after the attenuation correction, there was no significant ischemia noted. SSS is 0. TID value 1.22. On the gated images, the left ventricle appeared to be in normal size with hypercontractility. Calculated ejection fraction is 93%. CONCLUSION: 1. The patient tolerated Lexiscan well. 2. Breast attenuation affecting the quality of the images with using attenuation correction protocol, no ischemia was noted. 3. Normal left ventricle with hyperactive contractility, calculated ejection fraction 93%. 4. TID value of 1.22, probably falsely elevated due to the small left ventricular size. Job ID: [id number] DocumentID: [id number] Dictated Date: 07/05/2017 14:56:55 [employer] Date: 07/05/2017 22:45:29 Dictated By: FELIPE ANDERSON MD
== END ==
LOC: CARD 12:06
PROVIDERS: ATTEND Internal Medicine Cardiovascular Disease
DX: R07.9 Chest pain, unspecified (principal); R06.00 Dyspnea, unspecified; R00.0 Tachycardia, unspecified; I10 Essential (primary) hypertension; J44.9 Chronic obstructive pulmonary disease, unspecified
CPT/HCPCS: 78452; 93017

== ENCOUNTER → 2017-08-14 | Outpatient (CLI) | payer MEDICARE, BC ==
[~2017-08-14] MED LIST changes: -REGADENOSON 0.4 MG/5 ML SYR (LEXISCAN) IV ONE
--- NOTE | 2017-08-14 19:16 | Diagnostic Imaging Report ---
PA and lateral views of the chest. INDICATION: Shortness of breath. FINDINGS: There is mild right basilar atelectasis and eventration of the right hemidiaphragm. The left lung is clear. The heart size is normal. No effusion or pneumothorax. The mediastinum and rosi appear unremarkable. Lower thoracic spine degenerative changes seen. IMPRESSION: Eventration of the right hemidiaphragm with mild right basilar atelectasis. Dictated by: Dictated on workstation # [id number]
== END ==
LOC: RAD 12:13
PROVIDERS: ATTEND Nurse Practitioner Family
DX: J98.11 Atelectasis (principal); Q79.1 Other congenital malformations of diaphragm; J44.9 Chronic obstructive pulmonary disease, unspecified
CPT/HCPCS: 71020

== ENCOUNTER → 2017-08-15 | Outpatient (CLI) | payer MEDICARE, BC ==
[~2017-08-15] MED LIST changes: +RT-ALBUTEROL SULF 2.5 MG/3 ML PRE-MIX VIAL IH ONE
== END ==
LOC: RT 12:54
PROVIDERS: ATTEND Nurse Practitioner Family
DX: J44.9 Chronic obstructive pulmonary disease, unspecified (principal)
CPT/HCPCS: 94060; 94726; 94729

== ENCOUNTER → 2017-11-07 | Outpatient (CLI) | payer MEDICARE, BC ==
[~2017-11-07] MED LIST changes: -RT-ALBUTEROL SULF 2.5 MG/3 ML PRE-MIX VIAL IH ONE
--- NOTE | 2017-11-07 15:29 | Diagnostic Imaging Report ---
INDICATION: Cough. TIME OF EXAM: 03:32 p.m. Correlation is made with prior study from 08/14/2017. FINDINGS: The heart size is normal. The pulmonary vascularity is unremarkable. The lungs are clear. No infiltrate, effusion or pneumothorax is detected. IMPRESSION: No acute cardiopulmonary process is detected. Dictated by: Dictated on workstation # [id number]
== END ==
LOC: RAD 14:47
PROVIDERS: ATTEND Family Medicine
DX: R05 Cough (principal)
CPT/HCPCS: 71046

== ENCOUNTER 2017-11-29 13:00 | Outpatient (RCR) | payer MEDICARE, BC | END 2017-12-02 | disposition home or self-care (01) | LOC: PULM 13:00 | PROVIDERS: ATTEND Nurse Practitioner Family | DX: J44.9 Chronic obstructive pulmonary disease, unspecified (principal); J45.909 Unspecified asthma, uncomplicated | CPT/HCPCS: 99211 ==

== ENCOUNTER → 2017-12-10 | Outpatient (CLI) | payer MEDICARE, BC ==
--- NOTE | 2017-12-10 13:47 | Diagnostic Imaging Report ---
Indication: Claudication. Time of exam: 1:26 p.m. Ankle-brachial indices were obtained bilaterally. Ankle-brachial index on the right is 1.17, on the left 12.6. Impression: Normal ankle-brachial indices bilaterally. Dictated by: Dictated on workstation # [id number]
== END ==
LOC: RAD 12:41
PROVIDERS: ATTEND Family Medicine
DX: I70.213 Atherosclerosis of native arteries of extremities with intermittent claudication, bilateral legs (principal)
CPT/HCPCS: 93922

== ENCOUNTER → 2017-12-24 | Outpatient (CLI) | payer MEDICARE, BC ==
--- NOTE | 2017-12-24 15:02 | Diagnostic Imaging Report ---
INDICATION: Thumb and wrist pain. FINDINGS: There are marked degenerative changes at the base of the first metacarpal. There is joint space narrowing at the radiocarpal joint. There is degenerative change in the VIP and PIP joints. There is no fracture or dislocation. Soft tissues are grossly unremarkable. IMPRESSION: Degenerative changes, as described Dictated by: Dictated on workstation # [id number]
--- NOTE | 2017-12-24 15:24 | Diagnostic Imaging Report ---
INDICATION: Pain. Three views were obtained. FINDINGS: There are marked degenerative changes of the interphalangeal joint of the thumb. Possibility of a tiny avulsion fracture cannot be excluded. There are also marked degenerative changes at the base of the first metacarpal. Soft tissues are grossly unremarkable. IMPRESSION: Marked degenerative changes in the thumb as described. Again tiny avulsion fracture of the interphalangeal joint of the thumb cannot be excluded Dictated by: Dictated on workstation # [id number]
== END ==
LOC: RAD 14:31
PROVIDERS: ATTEND Nurse Practitioner Family
DX: M18.11 Unilateral primary osteoarthritis of first carpometacarpal joint, right hand (principal)
CPT/HCPCS: 73130; 73140

== ENCOUNTER → 2018-04-05 | Outpatient (CLI) | payer MEDICARE, BC ==
--- NOTE | 2018-04-05 14:53 | Diagnostic Imaging Report ---
PROCEDURE: US Renal Bilateral. TECHNIQUE: Multiple real-time grayscale images were obtained over the kidneys in various projections bilaterally. INDICATION: Renal insufficiency. FINDINGS: The right kidney measures 11.6 x 5.1 x 5.7 cm and the left kidney measures 10.6 x 5.3 x 5.0 cm. There are numerous cysts involving bilateral kidneys. Largest cyst on the right is inferiorly located approximately 4.6 x 4.2 cm. Largest cyst on the left is superior measuring 7.5 x 8.0 cm. Bladder is decompressed. There are no calculi or hydronephrosis. IMPRESSION: Bilateral renal cystic disease. Dictated by: Dictated on workstation # [id number]
== END ==
LOC: RAD 13:49
PROVIDERS: ATTEND Family Medicine
DX: N28.1 Cyst of kidney, acquired (principal)
CPT/HCPCS: 76770

== ENCOUNTER → 2018-06-13 | Outpatient (CLI) | payer MEDICARE, BC ==
--- NOTE | 2018-06-17 16:05 | Diagnostic Imaging Report ---
Indication: Screening. The current study was also evaluated with a Computer Aided Detection (CAD) system. 3-D tomosynthesis was also performed and reviewed. Comparison made with prior examination of 07/04/2016 back to 09/12/2011. Findings: Scattered fibroglandular densities bilaterally. There are benign type calcifications. There is no dominant mass, spiculated lesion or suspicious calcifications identified. Skin, nipples and axilla are unremarkable. Impression: Category 2 benign. ACR BI-RADS Category 2: Benign findings. Result letter will be mailed to the patient. Note: At least 10% of breast cancer is not imaged by mammography. Dictated by: Dictated on workstation # [id number]
== END ==
LOC: RAD 14:09
PROVIDERS: ATTEND Family Medicine
DX: Z12.31 Encounter for screening mammogram for malignant neoplasm of breast (principal)
CPT/HCPCS: 77067

== ENCOUNTER 2018-06-17 14:14 | Outpatient (RCR) | payer MEDICARE, BC ==
[~2018-06-17] VITALS: Ht 152.4 cm; Wt 92.1 kg
[2018-06-17 14:19] VITALS: BP 170/55
[2018-06-18 14:00] VITALS: BP 140/50
[2018-06-18 15:00] VITALS: BP 130/50
[2018-06-20 14:00] VITALS: BP 118/58
[2018-06-20 15:00] VITALS: BP 118/70
[2018-06-25 14:05] VITALS: BP 140/60
[2018-06-25 15:00] VITALS: BP 142/68
== END 2018-06-23 | disposition home or self-care (01) ==
LOC: PULM 14:14
PROVIDERS: ATTEND Nurse Practitioner Family
DX: J44.9 Chronic obstructive pulmonary disease, unspecified (principal); R06.00 Dyspnea, unspecified

== ENCOUNTER 2018-06-27 08:00 | Outpatient (RCR) | payer MEDICARE, BC ==
[2018-06-27 14:00] VITALS: BP 130/60
[2018-06-27 15:00] VITALS: BP 112/54
[2018-07-04 14:00] VITALS: BP 106/62
[2018-07-04 15:00] VITALS: BP 120/50
[2018-07-09 14:00] VITALS: BP 110/63
[2018-07-09 15:00] VITALS: BP 150/80
[2018-07-18 14:00] VITALS: BP 124/63
[2018-07-18 15:00] VITALS: BP 120/75
[2018-07-25 14:00] VITALS: BP 147/60
[2018-07-25 14:52] VITALS: BP 130/60
[2018-07-30 14:00] VITALS: BP 118/62
[2018-07-30 15:00] VITALS: BP 130/70
[2018-08-08 14:00] VITALS: BP 108/60
[2018-08-13 14:00] VITALS: BP 127/62
[2018-08-13 14:42] VITALS: BP 118/60
[2018-08-27 14:00] VITALS: BP 120/50
[2018-08-27 15:01] VITALS: BP 116/60
[2018-09-03 14:00] VITALS: BP 115/70
[2018-09-03 14:53] VITALS: BP 116/70
[2018-09-05 14:00] VITALS: BP 130/70
[2018-09-05 15:00] VITALS: BP 115/50
== END 2018-09-25 | disposition home or self-care (01) ==
LOC: PULM 08:00
PROVIDERS: ATTEND Nurse Practitioner Family
DX: J44.9 Chronic obstructive pulmonary disease, unspecified (principal); R06.00 Dyspnea, unspecified

== ENCOUNTER → 2018-07-24 | Outpatient (CLI) | payer MEDICARE, BC ==
[2018-07-24 13:06] LABS: HEMOGLOBIN 12.5 G/DL (11.5-16.0); MEAN PLATELET VOLUME 10.6 FL (7.4-10.4); RED BLOOD COUNT 4.19 10^6/uL (4.35-5.85); RED CELL DISTRIBUTION WIDTH 13.3 % (10.0-14.5); WHITE BLOOD COUNT 6.8 10^3/uL (4.3-11.0)
[2018-07-24 13:16] LABS: BILIRUBIN,URINE NEGATIVE (NEGATIVE); CLARITY,URINE CLEAR; COLOR,URINE YELLOW; GLUCOSE, URINE (UA) NEGATIVE (NEGATIVE); KETONES,URINE NEGATIVE (NEGATIVE); LEUKOCYTE ESTERASE ,URINE 3+ (NEGATIVE); NITRITE,URINE NEGATIVE (NEGATIVE); PH,URINE 6 (5-9); PROTEIN,URINE NEGATIVE (NEGATIVE); UROBILINOGEN,URINE NORMAL (NORMAL)
[2018-07-24 13:34] LABS: ALBUMIN 4.1 GM/DL (3.2-4.5); CALCIUM 9.9 MG/DL (8.5-10.1); CREATININE SERUM 1.64 MG/DL (0.60-1.30); PHOSPHORUS 2.9 MG/DL (2.3-4.7)
[2018-07-24 13:35] LABS: URINE CREATININE FOR RATIO 58 MG/DL (30-125); URINE PROTEIN FOR RATIO ONLY < 6 MG/DL (6-12)
[2018-07-24 13:36] LABS: BACTERIA,URINE TRACE /HPF; WBC,URINE 25-50 /HPF
== END ==
LOC: LAB 12:44
PROVIDERS: ATTEND Internal Medicine Nephrology
DX: D64.9 Anemia, unspecified (principal); N18.4 Chronic kidney disease, stage 4 (severe); E87.5 Hyperkalemia; I12.9 Hypertensive chronic kidney disease with stage 1 through stage 4 chronic kidney disease, or unspecified chronic kidney disease; R82.998 Other abnormal findings in urine
CPT/HCPCS: 36415; 80069; 81000; 82306; 82570; 82728; 83540; 83970; 84156; 84550; 85027; 87088

== ENCOUNTER → 2018-08-28 | Outpatient (CLI) | payer MEDICARE, BC ==
--- NOTE | 2018-08-28 17:30 | Diagnostic Imaging Report ---
PROCEDURE: CT abdomen and pelvis without contrast. TECHNIQUE: Multiple contiguous axial images were obtained through the abdomen and pelvis without the use of intravenous contrast. INDICATION: Bilateral groin and rectal pain. COMPARISON: 12/29/2014. FINDINGS: The lung bases are clear. The heart is normal in size. There is no pericardial effusion. The liver and spleen demonstrate no focal lesions. The pancreas appears normal. The left adrenal gland is normal. There is a bilobed mass of the right adrenal gland measuring up to 4.8 x 2.9 x 6.4 cm in greatest dimensions. This is mildly increased in size compared to 2015 and demonstrates gross fat density consistent with a myelolipoma. There are numerous cysts on the kidneys bilaterally. The largest on the right measures up to 4.5 x 4.2 cm in size. The largest on the left measures up to 7.4 x 5.9 cm in size. There is a 5.4 x 4.9 cm cyst at the inferior left kidney with septation and calcification which appears stable since 2015. There is no hydronephrosis or obstructing renal calculi seen. The bowel loops are nondistended without obstruction seen. There is diverticulosis of the sigmoid colon with mild fat stranding at the sigmoid colon in the pelvis (image 50 series 4). No pericolonic fluid collection is seen. The appendix appears normal. No free fluid or free air is seen. There is a fat-containing periumbilical hernia with no bowel involvement. There is a large right inguinal hernia which contains a small amount of small bowel, without evidence of strangulation or obstruction. No acute osseous abnormality is seen. There are degenerative changes in the lower thoracic spine and lower lumbar spine with fusion at L5-S1 as well as grade 2 anterolisthesis at that level. There is marked facet arthropathy in the lower lumbar spine. Degenerative changes of remote trauma are seen at the right sacroiliac joint. IMPRESSION: 1. Mild diverticulitis in the sigmoid colon. No free air or pericolonic fluid collections are seen. 2. Numerous renal cysts bilaterally, which appear stable. 3. Mildly increased size of the right adrenal myelolipoma. 4. Large right inguinal hernia containing small bowel without evidence of strangulation or obstruction. Fat-containing periumbilical hernia. Report was called to Dr. Yari Weber at 5:25 p.m., by юлия (for MK). Dictated by: Dictated on workstation # [id number]
== END ==
LOC: RAD 16:03
PROVIDERS: ATTEND Family Medicine
DX: K57.32 Diverticulitis of large intestine without perforation or abscess without bleeding (principal); N28.1 Cyst of kidney, acquired; D17.79 Benign lipomatous neoplasm of other sites; K40.90 Unilateral inguinal hernia, without obstruction or gangrene, not specified as recurrent; K42.9 Umbilical hernia without obstruction or gangrene
CPT/HCPCS: 74176

== ENCOUNTER → 2018-10-18 | Outpatient (CLI) | payer MEDICARE, BC ==
--- NOTE | 2018-10-18 15:05 | Diagnostic Imaging Report ---
PROCEDURE: CT chest without contrast. TECHNIQUE: Multiple contiguous axial images were obtained through the chest without the use of intravenous contrast. INDICATION: Cough and shortness of air since July. FINDINGS: No axillary lymphadenopathy is seen. Hilar and mediastinal evaluation is limited without intravenous contrast but no significant abnormality is seen. There are mild coronary arterial calcifications present. No pericardial or pleural fluid is identified. The central airways appear to be patent. Lungs are clear of acute infiltrates. No nodule or mass is seen. There is minimal scarring or subsegmental atelectasis in the lingula and right lower lobe. Upper abdomen demonstrates a fatty lesion of the right adrenal gland consistent with myelolipoma. Multiple rounded low-density renal masses are again noted consistent with cysts. IMPRESSION: Essentially unremarkable noncontrast CT of the chest. Dictated by: Dictated on workstation # [id number]
--- NOTE | 2018-10-18 16:35 | Diagnostic Imaging Report ---
INDICATION: Bilateral leg pain and swelling and shortness of breath. Bilateral lower extremity venous Doppler study was performed in the routine fashion with color flow Doppler and waveform analysis. FINDINGS: The common femoral veins, superficial femoral veins, popliteal veins and visualized portion of the tibial veins show normal compressibility and venous flow patterns. There is normal augmentation. IMPRESSION: No evidence of deep vein thrombosis in the major veins of both legs. Dictated by: Dictated on workstation # [id number]
== END ==
LOC: RAD 14:20
PROVIDERS: ATTEND Nurse Practitioner Family
DX: M79.89 Other specified soft tissue disorders (principal); J44.9 Chronic obstructive pulmonary disease, unspecified; I27.0 Primary pulmonary hypertension; G47.33 Obstructive sleep apnea (adult) (pediatric)
CPT/HCPCS: 71250; 93970

== ENCOUNTER → 2018-10-25 | Outpatient (CLI) | payer MEDICARE, BC ==
[~2018-10-25] MED LIST changes: +RT-ALBUTEROL SULF 2.5 MG/3 ML PRE-MIX VIAL INH ONE
== END ==
LOC: RT 13:53
PROVIDERS: ATTEND Nurse Practitioner Family
DX: J44.9 Chronic obstructive pulmonary disease, unspecified (principal); I27.0 Primary pulmonary hypertension; R06.00 Dyspnea, unspecified; G47.33 Obstructive sleep apnea (adult) (pediatric); M79.89 Other specified soft tissue disorders
CPT/HCPCS: 94060; 94726; 94729

== ENCOUNTER → 2018-10-28 | Outpatient (CLI) | payer MEDICARE, BC ==
[~2018-10-28] MED LIST changes: -RT-ALBUTEROL SULF 2.5 MG/3 ML PRE-MIX VIAL INH ONE
[2018-10-28 12:45] LABS: BASOPHILS % (AUTO) 0 % (0-10); EOSINOPHILS # (AUTO) 0.2 10^3/uL (0.0-0.3); EOSINOPHILS % (AUTO) 3 % (0-10); HEMATOCRIT 38 % (35-52); HEMOGLOBIN 12.1 G/DL (11.5-16.0); LYMPHOCYTES # (AUTO) 2.1 X 10^3 (1.0-4.0); LYMPHOCYTES % (AUTO) 29 % (12-44); MEAN CORPUSCULAR HEMOGLOBIN 30 PG (25-34); MEAN CORPUSCULAR HGB CONC 32 G/DL (32-36); MEAN CORPUSCULAR VOLUME 94 FL (80-99); MONOCYTES # (AUTO) 0.6 X 10^3 (0.0-1.0); MONOCYTES % (AUTO) 8 % (0-12); NEUTROPHILS # (AUTO) 4.3 X 10^3 (1.8-7.8); NEUTROPHILS % (AUTO) 61 % (42-75); PLATELET COUNT 221 10^3/uL (130-400); RED CELL DISTRIBUTION WIDTH 13.4 % (10.0-14.5); WHITE BLOOD COUNT 7.2 10^3/uL (4.3-11.0)
[2018-10-28 12:56] LABS: BILIRUBIN,URINE NEGATIVE (NEGATIVE); CLARITY,URINE CLEAR; COLOR,URINE YELLOW; GLUCOSE, URINE (UA) NEGATIVE (NEGATIVE); KETONES,URINE NEGATIVE (NEGATIVE); LEUKOCYTE ESTERASE ,URINE 3+ (NEGATIVE); NITRITE,URINE NEGATIVE (NEGATIVE); PH,URINE 6 (5-9); PROTEIN,URINE NEGATIVE (NEGATIVE); UROBILINOGEN,URINE NORMAL (NORMAL)
[2018-10-28 13:10] LABS: CALCIUM 9.4 MG/DL (8.5-10.1); CREATININE SERUM 1.49 MG/DL (0.60-1.30); PHOSPHORUS 2.9 MG/DL (2.3-4.7); POTASSIUM 3.7 MMOL/L (3.6-5.0); URIC ACID 6.4 MG/DL (2.6-7.2)
[2018-10-28 13:12] LABS: BACTERIA,URINE TRACE /HPF; SQUAMOUS EPITHELIAL CELL,UR 25-50 /HPF
== END ==
LOC: LAB 12:24
PROVIDERS: ATTEND Internal Medicine Nephrology
DX: I12.9 Hypertensive chronic kidney disease with stage 1 through stage 4 chronic kidney disease, or unspecified chronic kidney disease (principal); N18.4 Chronic kidney disease, stage 4 (severe); N28.1 Cyst of kidney, acquired; E79.0 Hyperuricemia without signs of inflammatory arthritis and tophaceous disease
CPT/HCPCS: 36415; 80069; 81000; 82306; 82570; 83970; 84156; 84550; 85025

== ENCOUNTER 2018-11-14 14:00 | Outpatient (RCR) | payer MEDICARE, BC ==
[2018-10-03 14:00] VITALS: BP 115/60
[2018-10-03 14:53] VITALS: BP 118/52
[2018-10-08 14:00] VITALS: BP 120/60
[2018-10-08 15:00] VITALS: BP 114/60
[2018-10-10 14:00] VITALS: BP 160/70
[2018-10-10 15:00] VITALS: BP 98/60
[2018-10-15 14:00] VITALS: BP 120/63
[2018-10-15 15:00] VITALS: BP 108/60
[2018-10-17 14:00] VITALS: BP 140/68
[2018-10-17 15:00] VITALS: BP 100/52
[2018-10-22 14:00] VITALS: BP 120/60
[2018-10-22 15:00] VITALS: BP 118/62
[2018-10-24 14:00] VITALS: BP 123/70
[2018-10-24 15:00] VITALS: BP 120/60
[2018-10-29 14:00] VITALS: BP 120/60
[2018-10-29 15:00] VITALS: BP 120/60
[2018-11-07 14:00] VITALS: BP 118/60
[2018-11-07 15:00] VITALS: BP 108/60
[2018-11-26 14:00] VITALS: BP 130/68
[2018-11-26 15:00] VITALS: BP 112/60
[2018-11-28 14:00] VITALS: BP 140/60
[2018-11-28 15:00] VITALS: BP 120/60
[2018-12-12 15:00] VITALS: BP 100/50
== END 2019-01-01 | disposition home or self-care (01) ==
LOC: PULM 14:00
PROVIDERS: ATTEND Nurse Practitioner Family
DX: J44.9 Chronic obstructive pulmonary disease, unspecified (principal); R06.00 Dyspnea, unspecified

== ENCOUNTER 2018-12-12 12:59 | Outpatient (RCR) | payer MEDICARE, BC | END 2018-12-12 13:56 | disposition home or self-care (01) | PROVIDERS: ATTEND Family Medicine | DX: M51.16 Intervertebral disc disorders with radiculopathy, lumbar region (principal) ==

== ENCOUNTER → 2019-07-16 | Outpatient (CLI) | payer MEDICARE ==
[~2019-07-16] MED LIST changes: -ACLI400A2 IH; +ACLI400A3 IH; -DULO60CA58; +DULO60CA59
--- NOTE | 2019-07-16 15:01 | Diagnostic Imaging Report ---
PROCEDURE: US Renal Bilateral. TECHNIQUE: Multiple real-time grayscale images were obtained over the kidneys in various projections bilaterally. INDICATION: Chronic kidney disease, stage III, as well as hypertension and hyperuricemia. FINDINGS: The right kidney measures 11.4 x 5.5 x 6.3 cm, and the left kidney measures 11.8 x 6.5 x 6.3 cm. Multiple cysts are identified within bilateral kidneys. Largest cyst on the right is noted inferior measuring 4.7 x 4.3 x 4.3 cm. The mid right renal cyst measures 3.6 x 2.9 x 3.2 cm. Largest cyst on the left in the upper and mid aspect measures 8.0 x 5.2 x 7.6 cm. A superiorly located cyst measures 4.4 x 4.3 x 5.1 cm. No definite calculi or hydronephrosis is seen. Partially filled urinary bladder is unremarkable. IMPRESSION: Bilateral renal cystic disease. No other significant abnormality is seen. Dictated by: Dictated on workstation # [id number]
== END ==
LOC: RAD 13:42
PROVIDERS: ATTEND Internal Medicine Nephrology
DX: I12.9 Hypertensive chronic kidney disease with stage 1 through stage 4 chronic kidney disease, or unspecified chronic kidney disease (principal); N18.3 Chronic kidney disease, stage 3 (moderate); E79.0 Hyperuricemia without signs of inflammatory arthritis and tophaceous disease; N28.1 Cyst of kidney, acquired
CPT/HCPCS: 76770

== ENCOUNTER → 2019-07-18 | Outpatient (CLI) | payer MEDICARE, BC ==
[2019-07-18 13:40] LABS: BASOPHILS % (AUTO) 0 % (0-10); EOSINOPHILS % (AUTO) 0 % (0-10); HEMATOCRIT 37 % (35-52); HEMOGLOBIN 11.8 G/DL (11.5-16.0); LYMPHOCYTES # (AUTO) 1.2 X 10^3 (1.0-4.0); LYMPHOCYTES % (AUTO) 10 % (12-44); MEAN CORPUSCULAR HEMOGLOBIN 31 PG (25-34); MEAN CORPUSCULAR HGB CONC 32 G/DL (32-36); MEAN CORPUSCULAR VOLUME 97 FL (80-99); MEAN PLATELET VOLUME 10.9 FL (7.4-10.4); MONOCYTES # (AUTO) 0.3 X 10^3 (0.0-1.0); MONOCYTES % (AUTO) 3 % (0-12); NEUTROPHILS # (AUTO) 10.2 X 10^3 (1.8-7.8); NEUTROPHILS % (AUTO) 87 % (42-75); PLATELET COUNT 289 10^3/uL (130-400); RED CELL DISTRIBUTION WIDTH 13.6 % (10.0-14.5); WHITE BLOOD COUNT 11.7 10^3/uL (4.3-11.0)
[2019-07-18 13:52] LABS: BILIRUBIN,URINE NEGATIVE (NEGATIVE); CLARITY,URINE CLEAR; COLOR,URINE YELLOW; GLUCOSE, URINE (UA) NEGATIVE (NEGATIVE); KETONES,URINE NEGATIVE (NEGATIVE); LEUKOCYTE ESTERASE ,URINE 1+ (NEGATIVE); NITRITE,URINE NEGATIVE (NEGATIVE); PH,URINE 6 (5-9); PROTEIN,URINE NEGATIVE (NEGATIVE)
[2019-07-18 14:03] LABS: CREATININE SERUM 1.76 MG/DL (0.60-1.30); POTASSIUM 3.8 MMOL/L (3.6-5.0)
[2019-07-18 14:04] LABS: CALCIUM 9.2 MG/DL (8.5-10.1); PHOSPHORUS 3.6 MG/DL (2.3-4.7); URIC ACID 7.6 MG/DL (2.6-7.2)
[2019-07-18 14:13] LABS: BACTERIA,URINE TRACE /HPF
[2019-07-18 14:18] LABS: URINE CREATININE FOR RATIO 39 MG/DL (30-125); URINE PROTEIN FOR RATIO ONLY < 6 MG/DL (6-12)
[2019-07-18 14:53] LABS: BAND NEUTROPHILS 1 %; EOSINOPHILS % (MANUAL) 0 %; LYMPHOCYTES % (MANUAL) 13 %; MONOCYTES % (MANUAL) 3 %; NEUTROPHILS % (MANUAL) 83 %
[2019-07-18 14:54] LABS: BASOPHILS % (MANUAL) 0 %; RBC MORPH NORMAL
== END ==
LOC: LAB 13:26
PROVIDERS: ATTEND Internal Medicine Nephrology
DX: I12.9 Hypertensive chronic kidney disease with stage 1 through stage 4 chronic kidney disease, or unspecified chronic kidney disease (principal); N18.3 Chronic kidney disease, stage 3 (moderate); E79.0 Hyperuricemia without signs of inflammatory arthritis and tophaceous disease; N28.1 Cyst of kidney, acquired
CPT/HCPCS: 36415; 80069; 81000; 82306; 82570; 83970; 84156; 84550; 85007; 85027; 87077; 87088

== ENCOUNTER → 2019-11-27 | Outpatient (CLI) | payer MEDICARE, BC ==
[~2019-11-27] MED LIST changes: -MAGN400T6 PO; +MAGN400T8 PO; +OMEP40CA27 PO; -OMEP40CA36 PO; -TRAM50TA2 PO; +TRM50T PO
--- NOTE | 2019-11-27 16:05 | Diagnostic Imaging Report ---
EXAMINATION: Pelvis and right hip. INDICATION: Hip pain. FINDINGS: A single AP view of the pelvis and AP and lateral views of the right hip were obtained. There is no fracture, dislocation, or acute bony abnormality evident. There is mild degenerative disease involving the hip and sacroiliac joints. The degenerative changes seem similar to the prior CT abdomen/pelvis exam of 08/28/2018. There is also moderate degenerative disc and bony disease involving the visualized lower lumbar spine. The soft tissues are unremarkable. IMPRESSION: There is no evidence for an acute bony abnormality. Dictated by: Dictated on workstation # [id number]
--- NOTE | 2019-11-27 17:07 | Diagnostic Imaging Report ---
EXAMINATION: Sacrum and coccyx at 2:22 p.m. INDICATION: Fell. AP and lateral views were obtained. There are no prior studies available for comparison. FINDINGS: There is no fracture or acute bony abnormality evident. There is mild symmetrical sclerosis of the sacroiliac joints. The lateral view does show degenerative disc and bony disease at L5-S1 including a grade 2 spondylolisthesis of L5 with respect to S1. The degenerative changes seem similar to the prior CT abdomen/pelvis exam of 08/28/2018. IMPRESSION: 1. There is no evidence for an acute bony abnormality. 2. If clinical concern regarding an acute abnormality persists, then MRI would be recommended for further study. 3. The severe degenerative disc and bony disease at the L5-S1 level seen previously is again evident and does not appear to have changed significantly. Dictated on workstation # [id number]
== END ==
LOC: RAD 13:57
PROVIDERS: ATTEND Family Medicine
DX: M25.551 Pain in right hip (principal); M51.37 Other intervertebral disc degeneration, lumbosacral region
CPT/HCPCS: 72220

== ENCOUNTER → 2020-01-17 | Outpatient (CLI) | payer MEDICARE, BC ==
[2020-01-17 08:58] LABS: ALBUMIN 3.8 GM/DL (3.2-4.5)
[2020-01-17 08:59] LABS: POTASSIUM 3.8 MMOL/L (3.6-5.0)
[2020-01-17 09:00] LABS: CALCIUM 9.1 MG/DL (8.5-10.1)
[2020-01-17 09:04] LABS: PHOSPHORUS 2.8 MG/DL (2.3-4.7)
[2020-01-17 09:05] LABS: CREATININE SERUM 1.52 MG/DL (0.60-1.30)
== END ==
LOC: LAB 07:42
PROVIDERS: ATTEND Internal Medicine Cardiovascular Disease
DX: R06.09 Other forms of dyspnea (principal)
CPT/HCPCS: 36415; 80069; 83880

== ENCOUNTER → 2020-07-14 | Outpatient (CLI) | payer MEDICARE, BC | LOC: LABNPT 05:19 | PROVIDERS: ATTEND Family Medicine | DX: J06.9 Acute upper respiratory infection, unspecified (principal); Z20.828 Contact with and (suspected) exposure to other viral communicable diseases | CPT/HCPCS: 87635 ==

== ENCOUNTER → 2021-01-03 | Outpatient (CLI) | payer MEDICARE, BC ==
[~2021-01-03] MED LIST changes: +RT-ALBUTEROL SULF 2.5 MG/3 ML PRE-MIX VIAL INH ONE
--- NOTE | 2021-01-03 13:27 | Diagnostic Imaging Report ---
EXAMINATION: CT Chest without contrast. TECHNIQUE: Multiple contiguous axial images were obtained through the chest without the use of intravenous contrast. All CT scans use one or more of the following dose optimizing techniques: automated exposure control, MA and/or KvP adjustment based on a patient size and exam type, or iterative reconstruction. HISTORY: COPD, shortness of breath COMPARISON: CT chest 10/18/2018 FINDINGS: Thyroid: The thyroid is normal. Mediastinum: Heart size is normal without significant pericardial effusion. Calcifications of the aorta and coronary vessels. Thoracic aorta is normal in caliber. No suspicious lymphadenopathy. Lungs and airways: The lungs are clear without consolidation, pleural effusion, or pneumothorax. No suspicious pulmonary nodule. There is a calcified granuloma within the right upper lobe. The airways are normal. Upper abdomen: There are multiple fat-containing lesions within the expected location right adrenal gland, unchanged in size or appearance from 10/18/2018, favored to represent adrenal myelolipomas. The left adrenal gland is unremarkable. There are multiple partially visualized left renal cysts which require no followup. There is a small hiatal hernia. The gallbladder is surgically absent. Musculoskeletal: Degenerative changes of the spine without suspicious osseous lesion or compression fracture. IMPRESSION: 1. No acute abnormality in the chest. 2. Stable appearance of multiple right adrenal nodules with imaging characteristics suggesting an adrenal myelolipomas measuring up to 5.4 cm. Dictated by: Dictated on workstation # [id number]
--- NOTE | 2021-01-03 15:23 | Diagnostic Imaging Report ---
PROCEDURE: US Venous Lower Ext Mal[place]. TECHNIQUE: Multiple Real-time grayscale images were obtained over the lower extremities in various projections, bilaterally. Additional duplex Doppler and color Doppler images were also obtained. INDICATION: Bilateral lower extremity edema and pain. FINDINGS: There is no evidence of right or left lower extremity DVT. Both lower extremity deep venous systems show normal compressibility with normal response to augmentation and Valsalva. No fluid collection or mass is detected. IMPRESSION: No evidence of right or left lower extremity DVT. Dictated by: Dictated on workstation # [id number]
== END ==
LOC: RT 12:14
PROVIDERS: ATTEND Nurse Practitioner Family
DX: J44.9 Chronic obstructive pulmonary disease, unspecified (principal); E27.8 Other specified disorders of adrenal gland; M79.605 Pain in left leg; M79.604 Pain in right leg; R60.0 Localized edema
CPT/HCPCS: 71250; 93970; 94060; 94726; 94729

== ENCOUNTER → 2021-01-03 | Outpatient (CLI) | payer MEDICARE, BC ==
[~2021-01-03] MED LIST changes: -RT-ALBUTEROL SULF 2.5 MG/3 ML PRE-MIX VIAL INH ONE
--- NOTE | 2021-01-03 16:01 | Diagnostic Imaging Report ---
PROCEDURE: US carotid duplex, bilateral. TECHNIQUE: Multiple real-time grayscale images were obtained over the carotid arteries in various projections, bilaterally. Additional spectral analysis and color Doppler duplex images were also obtained. INDICATION: Vertigo. FINDINGS: There is mild plaquing at the right carotid bifurcation. Velocities are normal in both carotid systems. No velocity elevation or stenosis is seen. Both vertebral arteries show antegrade flow. IMPRESSION: No evidence of a hemodynamically significant stenosis. Parameters based on the consensus panel Alvarado-Scale and Doppler ultrasound criteria published July 2003, Radiology, Volume 229. DOPPLER (peak systolic velocity M/S Right Left CCA .71 .73 ICA Proximal .63 .76 ICA Mid .84 .82 ICA Distal .83 1.0 RATIO 1.2 1.4 ECA .95 .68 VERT .58 .80 Dictated by: Dictated on workstation # [id number]
== END ==
LOC: RAD 12:15
PROVIDERS: ATTEND Family Medicine
DX: I65.29 Occlusion and stenosis of unspecified carotid artery (principal)
CPT/HCPCS: 93880

== ENCOUNTER → 2021-01-06 | Outpatient (CLI) | payer MEDICARE, BC ==
--- NOTE | 2021-01-06 14:54 | Diagnostic Imaging Report ---
INDICATION: Right wrist pain 3 views the right wrist shows hypertrophic arthropathic changes of the 1st carpometacarpal joint. There is an old ulnar styloid fracture. There is no acute fracture or dislocation. IMPRESSION: Old ununited ulnar styloid fracture. 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 This could be posttraumatic in nature but no acute abnormality seen. Dictated by: Dictated on workstation # [id number]
--- NOTE | 2021-01-06 14:55 | Diagnostic Imaging Report ---
INDICATION: Pain. EXAMINATION: Six views were obtained. FINDINGS: Three views of the right hand were obtained. Bones are osteopenic. There are marked degenerative changes at the base of the first metacarpal. There is no fracture or dislocation. Soft tissues are unremarkable. There are also degenerative changes to a lesser degree at DIP and PIP joints. IMPRESSION: Osteopenia and degenerative changes otherwise unremarkable. Right shoulder: There is mild arthrosis of the acromioclavicular joint. There are some osteoarthritic changes of glenohumeral joint. There is no fracture or dislocation. Right lung is clear. Soft tissues are unremarkable. IMPRESSION: Degenerative changes otherwise unremarkable. Dictated by: Dictated on workstation # [id number]
--- NOTE | 2021-01-07 07:26 | Diagnostic Imaging Report ---
INDICATION: Right shoulder pain 3 views of the right shoulder show mild degenerative changes of the acromioclavicular joint. There are degenerative changes of the glenohumeral joint with osteophytes forming the inferior margins of the humeral head. There is no fracture or dislocation. IMPRESSION: Degenerative changes of the right shoulder. No acute abnormality seen. Dictated by: Dictated on workstation # [id number]
== END ==
LOC: RAD 13:49
PROVIDERS: ATTEND Family Medicine
DX: S52.611A Displaced fracture of right ulna styloid process, initial encounter for closed fracture (principal); M18.11 Unilateral primary osteoarthritis of first carpometacarpal joint, right hand; M19.011 Primary osteoarthritis, right shoulder; X58.XXXA Exposure to other specified factors, initial encounter
CPT/HCPCS: 73030; 73110; 73130

== ENCOUNTER → 2021-02-22 | Outpatient (CLI) | payer MEDICARE, BC ==
[2021-02-22 13:49] LABS: ALBUMIN 3.9 GM/DL (3.2-4.5)
[2021-02-22 13:50] LABS: POTASSIUM 3.8 MMOL/L (3.6-5.0)
[2021-02-22 13:55] LABS: PHOSPHORUS 2.9 MG/DL (2.3-4.7)
[2021-02-22 13:56] LABS: CREATININE SERUM 2.05 MG/DL (0.60-1.30)
[2021-02-22 13:59] LABS: URIC ACID 9.5 MG/DL (2.6-7.2)
[2021-02-22 14:19] LABS: URINE CREATININE FOR RATIO 70 MG/DL (30-125)
[2021-02-22 14:20] LABS: URINE PROTEIN FOR RATIO ONLY < 6 MG/DL (6-12)
== END ==
LOC: LAB 13:03
PROVIDERS: ATTEND Internal Medicine Nephrology
DX: I13.0 Hypertensive heart and chronic kidney disease with heart failure and stage 1 through stage 4 chronic kidney disease, or unspecified chronic kidney disease (principal); N18.4 Chronic kidney disease, stage 4 (severe); I50.30 Unspecified diastolic (congestive) heart failure; E79.0 Hyperuricemia without signs of inflammatory arthritis and tophaceous disease
CPT/HCPCS: 36415; 80069; 82306; 82570; 83970; 84156; 84550

== ENCOUNTER → 2021-09-01 | Outpatient (CLI) | payer MEDICARE, BC ==
[~2021-09-01] MED LIST changes: -MAGN400T8 PO; +MGX400T PO; -OMEP40CA27 PO; +OMEP40CA6 PO; +POTA-169 PO; -POTA20TA8 PO
[2021-09-01 16:00] LABS: BASOPHILS % (AUTO) 1 % (0-10); EOSINOPHILS # (AUTO) 0.3 10^3/uL (0.0-0.3); EOSINOPHILS % (AUTO) 3 % (0-10); HEMATOCRIT 39 % (35-52); HEMOGLOBIN 12.3 g/dL (11.5-16.0); LYMPHOCYTES # (AUTO) 1.8 10^3/uL (1.0-4.0); LYMPHOCYTES % (AUTO) 23 % (12-44); MEAN CORPUSCULAR HEMOGLOBIN 29 pg (25-34); MEAN CORPUSCULAR HGB CONC 32 g/dL (32-36); MEAN CORPUSCULAR VOLUME 91 fL (80-99); MEAN PLATELET VOLUME 11.3 fL (9.0-12.2); MONOCYTES # (AUTO) 0.7 10^3/uL (0.0-1.0); MONOCYTES % (AUTO) 9 % (0-12); NEUTROPHILS % (AUTO) 64 % (42-75); PLATELET COUNT 292 10^3/uL (130-400); WHITE BLOOD COUNT 7.8 10^3/uL (4.3-11.0)
[2021-09-01 16:29] LABS: ALBUMIN 3.9 GM/DL (3.2-4.5); POTASSIUM 3.8 MMOL/L (3.6-5.0)
[2021-09-01 16:32] LABS: TOTAL PROTEIN 7.6 GM/DL (6.4-8.2)
[2021-09-01 16:34] LABS: BILIRUBIN,TOTAL 0.4 MG/DL (0.1-1.0)
[2021-09-01 16:36] LABS: CREATININE SERUM 1.81 MG/DL (0.60-1.30)
--- NOTE | 2021-09-01 17:37 | Diagnostic Imaging Report ---
INDICATION: Dyspnea/cough. COMPARISON: 01/03/2021. FINDINGS: Frontal and lateral views of the chest demonstrate normal heart size and pulmonary vascularity. The lungs are clear. There are no signs of infiltrate, pleural effusions or pneumothoraces. The visualized osseous structures show no acute abnormalities. IMPRESSION: No acute process. No signs of infiltrates, effusions or pneumothoraces. Dictated by: Dictated on workstation # [id number]
== END ==
LOC: RAD 15:34
PROVIDERS: ATTEND Family Medicine
DX: L29.9 Pruritus, unspecified (principal); R06.00 Dyspnea, unspecified; R53.83 Other fatigue; R05.9 Cough, unspecified
CPT/HCPCS: 36415; 71046; 80053; 83880; 85025

== ENCOUNTER → 2021-11-07 | Outpatient (CLI) | payer MEDICARE, BC ==
[2021-11-07 13:05] LABS: BASOPHILS % (AUTO) 1 % (0-10); EOSINOPHILS # (AUTO) 0.3 10^3/uL (0.0-0.3); EOSINOPHILS % (AUTO) 4 % (0-10); HEMATOCRIT 40 % (35-52); HEMOGLOBIN 12.2 g/dL (11.5-16.0); LYMPHOCYTES # (AUTO) 1.8 10^3/uL (1.0-4.0); LYMPHOCYTES % (AUTO) 26 % (12-44); MEAN CORPUSCULAR HEMOGLOBIN 29 pg (25-34); MEAN CORPUSCULAR HGB CONC 31 g/dL (32-36); MEAN CORPUSCULAR VOLUME 94 fL (80-99); MEAN PLATELET VOLUME 11.2 fL (9.0-12.2); MONOCYTES # (AUTO) 0.5 10^3/uL (0.0-1.0); MONOCYTES % (AUTO) 7 % (0-12); NEUTROPHILS # (AUTO) 4.3 10^3/uL (1.8-7.8); NEUTROPHILS % (AUTO) 62 % (42-75); PLATELET COUNT 272 10^3/uL (130-400)
[2021-11-07 13:09] LABS: POTASSIUM 4.2 MMOL/L (3.6-5.0)
[2021-11-07 13:10] LABS: CALCIUM 9.2 MG/DL (8.5-10.1)
[2021-11-07 13:14] LABS: CREATININE SERUM 1.64 MG/DL (0.60-1.30); PHOSPHORUS 2.8 MG/DL (2.3-4.7)
[2021-11-07 13:24] LABS: URINE CREATININE FOR RATIO 30 MG/DL (30-125); URINE PROTEIN FOR RATIO ONLY < 6 MG/DL (6-12)
== END ==
LOC: LAB 12:24
PROVIDERS: ATTEND Internal Medicine Nephrology
DX: I12.9 Hypertensive chronic kidney disease with stage 1 through stage 4 chronic kidney disease, or unspecified chronic kidney disease (principal); N18.4 Chronic kidney disease, stage 4 (severe)
CPT/HCPCS: 36415; 80069; 82570; 84156; 85025

== ENCOUNTER → 2022-01-14 | Outpatient (CLI) | payer MEDICARE, BC ==
[2022-01-14 12:21] LABS: BASOPHILS % (AUTO) 0 % (0-10); EOSINOPHILS # (AUTO) 0.4 10^3/uL (0.0-0.3); EOSINOPHILS % (AUTO) 5 % (0-10); HEMATOCRIT 39 % (35-52); HEMOGLOBIN 12.5 g/dL (11.5-16.0); LYMPHOCYTES # (AUTO) 1.7 10^3/uL (1.0-4.0); LYMPHOCYTES % (AUTO) 22 % (12-44); MEAN CORPUSCULAR HEMOGLOBIN 30 pg (25-34); MEAN CORPUSCULAR HGB CONC 32 g/dL (32-36); MEAN CORPUSCULAR VOLUME 94 fL (80-99); MEAN PLATELET VOLUME 11.2 fL (9.0-12.2); MONOCYTES # (AUTO) 0.6 10^3/uL (0.0-1.0); MONOCYTES % (AUTO) 8 % (0-12); NEUTROPHILS # (AUTO) 5.1 10^3/uL (1.8-7.8); NEUTROPHILS % (AUTO) 65 % (42-75); PLATELET COUNT 274 10^3/uL (130-400); WHITE BLOOD COUNT 7.9 10^3/uL (4.3-11.0)
[2022-01-14 12:37] LABS: ALBUMIN 3.9 GM/DL (3.2-4.5); CALCIUM 9.4 MG/DL (8.5-10.1); PHOSPHORUS 2.5 MG/DL (2.3-4.7)
[2022-01-14 12:45] LABS: URINE CREATININE FOR RATIO 84 MG/DL (30-125); URINE PROTEIN FOR RATIO ONLY < 6 MG/DL (6-12)
== END ==
LOC: LAB 11:57
PROVIDERS: ATTEND Internal Medicine Nephrology
DX: E55.9 Vitamin D deficiency, unspecified (principal); I12.9 Hypertensive chronic kidney disease with stage 1 through stage 4 chronic kidney disease, or unspecified chronic kidney disease; N18.30 Chronic kidney disease, stage 3 unspecified; E21.2 Other hyperparathyroidism
CPT/HCPCS: 36415; 80069; 82306; 82570; 83970; 84156; 84550; 85025

== ENCOUNTER 2022-03-21 17:26 | Emergency (ER) | payer MEDICARE, BC ==
[~2022-03-21] VITALS: Ht 152 cm; Wt 82.0 kg
[~2022-03-21 17:26] MED LIST changes: +ACLI400A2 IH; -ACLI400A3 IH
--- NOTE | 2022-03-21 17:57 | ED Dyspnea ---
General Stated Complaint: COVID + 03/20 - SOA - FEVER - COUGH - COPD Source of Information: Patient Exam Limitations: No Limitations History of Present Illness Date Seen by Provider: Mar 21, 2022 Time Seen by Provider: 17:56 Initial Comments Patient is a 77-year-old female who presents to the ED with flulike symptoms. She states symptoms started last Sunday with joint pain diffuse body pain. Started having a mild productive cough of greenish sputum production. Intermittent shortness of breath especially with walking. Denies increased leg swelling.. She started having diarrhea last night that finished today with any blood or mucus. Nausea without vomiting. Loss of taste today. She states on arrival she is feeling much better. She tested positive for COVID at home yesterday was sent to the ED for further evaluation. She is up-to-date on her COVID vaccines. History of CHF, COPD, chronic kidney disease because of asthma. Denies wheezing, current chest pain abdominal pain, headache, dizziness, visual changes, sore throat. Patient denies taking medication Allergies and Home Medications Allergies Coded Allergies: morphine (Unverified Allergy, Mild, 07/27/09) NKANo Known Allergies (Verified Allergy, Unknown, 03/18/07) Patient Home Medication List Home Medication List Reviewed: Yes Aclidinium [place] (Tudorza Pressair) 400 Mcg Aer.pow.ba, 1 PUFF IH BID, (Reported) Entered as Reported by: ZACH CHRISTIE on 12/19/15 174 Cetirizine HCl (Cetirizine HCl) 10 Mg Tablet, 10 MG PO DAILY, (Reported) Entered as Reported by: ZACH CHRISTIE on 12/19/15 174 Duloxetine HCl (Duloxetine HCl) 60 Mg Capsule., (Reported) Entered as Reported by: MALCOLM MITCHELL on 05/04/17 1228 Fluticasone/Salmeterol (Advair 250-50 Diskus) 1 Each Blst.w.dev, 1 PUFF IH BID, (Reported) Entered as Reported by: ZACH CHRISTIE on 12/19/15 174 Furosemide (Furosemide) 40 Mg Tablet, 40 MG PO DAILY, (Reported) Entered as Reported by: MARCOS AISF on 11/29/12 1544 Gabapentin (Gabapentin) 300 Mg Capsule, (Reported) Entered as Reported by: MALCOLM MITCHELL on 05/04/17 1228 Magnesium Oxide (Magnesium Oxide) 400 Mg Tablet, 800 MG PO DAILY Prescribed by: EDITH AREVALO on 05/04/17 1310 Montelukast Sodium (Singulair) 10 Mg Tablet, 10 MG PO HS, (Reported) Entered as Reported by: ZACH CHRISTIE on 12/19/15 1746 Omeprazole (Omeprazole) 40 Mg Capsule.dr, 40 MG PO BID, (Reported) Entered as Reported by: ZACH CHRISITE on 12/19/15 1746 Potassium Chloride (Klor-Con M20) 20 Meq Tab.er.prt, 20 MEQ PO DAILY, (Reported) Entered as Reported by: ZACH CHRISTIE on 12/19/15 1746 Ranitidine Hcl (Ranitidine Hcl) 300 Mg Tablet, 300 MG PO HS, (Reported) Entered as Reported by: MARCOS ASIF on 11/29/12 1544 Tramadol HCl (Tramadol HCl) 50 Mg Tablet, 50 MG PO Q4H PRN for PAIN Prescribed by: KAREN RODRIGUEZ on 12/24/16 1950 Valsartan (Valsartan) 160 Mg Tablet, 160 MG PO DAILY, (Reported) Entered as Reported by: DAFNE LARES on 01/20/15 0815 Review of Systems Review of Systems Constitutional: chills, malaise, weakness EENTM: mouth swelling, throat pain; No ear pain, No blurred vision, No double vision, No mouth pain Respiratory: cough, short of breath Cardiovascular: No chest pain Gastrointestinal: No abdominal pain; diarrhea, nausea; No vomiting Genitourinary: No decreased output, No discharge Musculoskeletal: No back pain Skin: No change in color, No change in hair/nails All Other Systems Reviewed Negative Unless Noted: Yes Past Ixoorve-Ekwtix-Zwyukn Hx Past Medical History Surgeries: Yes (BILAT CARPAL TUNNEL) Bladder Surgery, Hysterectomy, Orthopedic, Tonsillectomy Respiratory: Yes COPD Cardiac: Yes Chronic Edema/Swelling, Hypertension Neurological: No Reproductive Disorders: No Gastrointestinal: No Musculoskeletal: Yes (ARTHRITIS) Endocrine: No Blood Disorders: No Family Medical History No Pertinent Family Hx Physical Exam Vital Signs Vital Signs - First Documented Capillary Refill : Height, Weight, BMI Height: 5'0.00" Weight: 206lbs. 0.0oz. 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 Skin: Normal Color, Warm/Dry Progress/Results/Core Measures Results/Orders Lab Results Laboratory Tests Test 03/21/22 17:40 Range/Units White Blood Count 5.7 4.3-11.0 10^3/uL Red Blood Count 4.04 3.80-5.11 10^6/uL Hemoglobin 12.2 11.5-16.0 g/dL Hematocrit 39 35-52 % Mean Corpuscular Volume 96 80-99 fL Mean Corpuscular Hemoglobin 30 25-34 pg Mean Corpuscular Hemoglobin Concent 32 32-36 g/dL Red Cell Distribution Width 13.4 10.0-14.5 % Platelet Count 245 130-400 10^3/uL Mean Platelet Volume 11.0 9.0-12.2 fL Immature Granulocyte % (Auto) 1 % Neutrophils (%) (Auto) 44 42-75 % Lymphocytes (%) (Auto) 37 12-44 % Monocytes (%) (Auto) 10 0-12 % Eosinophils (%) (Auto) 8 0-10 % Basophils (%) (Auto) 0 0-10 % Neutrophils # (Auto) 2.5 1.8-7.8 10^3/uL Lymphocytes # (Auto) 2.1 1.0-4.0 10^3/uL Monocytes # (Auto) 0.6 0.0-1.0 10^3/uL Eosinophils # (Auto) 0.4 H 0.0-0.3 10^3/uL Basophils # (Auto) 0.0 0.0-0.1 10^3/uL Immature Granulocyte # (Auto) 0.0 0.0-0.1 10^3/uL Sodium Level 138 135-145 MMOL/L Potassium Level 3.7 3.6-5.0 MMOL/L Chloride Level 104 98-107 MMOL/L Carbon Dioxide Level 22 21-32 MMOL/L Anion Gap 12 5-14 MMOL/L Blood Urea Nitrogen 23 H 7-18 MG/DL Creatinine 1.78 H 0.60-1.30 MG/DL Estimat Glomerular Filtration Rate 29 BUN/Creatinine Ratio 13 Glucose Level 75 70-105 MG/DL Calcium Level 9.3 8.5-10.1 MG/DL Corrected Calcium 9.3 8.5-10.1 MG/DL Magnesium Level 1.8 1.6-2.4 MG/DL Total Bilirubin 0.6 0.1-1.0 MG/DL Aspartate Amino Transf (AST/SGOT) 25 5-34 U/L Alanine Aminotransferase (ALT/SGPT) 11 0-55 U/L Alkaline Phosphatase 78 40-136 U/L Troponin I < 0.028 <0.028 NG/ML B-Type Natriuretic Peptide 127.8 H <100.0 PG/ML Total Protein 7.7 6.4-8.2 GM/DL Albumin 4.0 3.2-4.5 GM/DL My Orders Orders - MALKA ANTONIO PA Cbc With Automated Diff (03/21/22 17:52) Comprehensive Metabolic Panel (03/21/22 17:52) Bnp Torrie (03/21/22 17:52) Troponin I [place] (03/21/22 17:52) Magnesium (03/21/22 17:52) Ekg Tracing (03/21/22 17:52) Chest 1 View, Ap/Pa Only (03/21/22 17:52) Bebtelovimab (Bebtelovimab) (03/21/22 18:45) Nursing Communication (Order) (03/21/22 18:31) Dexamethasone Injection (Decadron Inje (03/21/22 18:37) Medications Given in ED Current Medications Medications Dose Ordered Sig/Yasmin Route Start Time Stop Time Status Last Admin Dose Admin Bebtelovimab 175 mg ONCE ONCE IV 03/21/22 18:45 03/21/22 18:46 DC 03/21/22 19:08 175 MG Vital Signs/I&O 03/21/22 03/21/22 03/21/22 17:30 17:30 19:34 Temp 36.7 Pulse 73 61 Resp 20 20 B/P (MAP) 131/93 (106) 106/85 Pulse Ox 97 96 O2 Delivery Room Air Room Air Room Air Departure Communication (PCP) History of COPD, CHF, chronic kidney disease who presents ED with flulike symptoms. Tested positive for COVID at home. Was sent to the ED for further evaluation for this cough shortness of breath. Patient vital signs stable on arrival. She does not appear in acute distress. No increase in leg swelling. Patient lab work was otherwise unremarkable. Normal troponin. EKG sinus rhythm with first-degree AV block. No evidence of significant ST elevation or depression. Denies of any current chest pain. Chest x-ray was negative for pneumonia. Patient lab work showed stable chronic kidney disease. Due to contradiction with Paxlovid with severe kidney disease patient was given monoclonal antibody infusion here. Patient tolerated infusion well. Was given a dose of Decadron. She does not appear in acute respiratory distress. Once again chest x-ray was clear. Discussed pulse ox to monitor oxygen level at home with anything below 92%. Continue with conservative treatment at home. If any worsening symptoms return back to ED for further evaluation. Impression Primary Impression: COVID-19 Disposition: 01 HOME, SELF-CARE Condition: Stable Departure-Patient Inst. Decision time for Depature: 18:51 Referrals: CHARLES COLLINS DO (PCP/Family) Primary Care Physician Patient Instructions: COVID-19 (DC) MALKA ANTONIO Mar 21, 2022 17:57
[2022-03-21 17:58] LABS: BASOPHILS % (AUTO) 0 % (0-10); EOSINOPHILS # (AUTO) 0.4 10^3/uL (0.0-0.3); EOSINOPHILS % (AUTO) 8 % (0-10); HEMATOCRIT 39 % (35-52); HEMOGLOBIN 12.2 g/dL (11.5-16.0); LYMPHOCYTES # (AUTO) 2.1 10^3/uL (1.0-4.0); LYMPHOCYTES % (AUTO) 37 % (12-44); MEAN CORPUSCULAR HEMOGLOBIN 30 pg (25-34); MEAN CORPUSCULAR HGB CONC 32 g/dL (32-36); MEAN CORPUSCULAR VOLUME 96 fL (80-99); MONOCYTES # (AUTO) 0.6 10^3/uL (0.0-1.0); MONOCYTES % (AUTO) 10 % (0-12); NEUTROPHILS # (AUTO) 2.5 10^3/uL (1.8-7.8); NEUTROPHILS % (AUTO) 44 % (42-75); PLATELET COUNT 245 10^3/uL (130-400); WHITE BLOOD COUNT 5.7 10^3/uL (4.3-11.0)
[2022-03-21 18:02] LABS: CHLORIDE 104 MMOL/L (98-107); POTASSIUM 3.7 MMOL/L (3.6-5.0); SODIUM 138 MMOL/L (135-145)
[2022-03-21 18:03] LABS: CALCIUM 9.3 MG/DL (8.5-10.1)
[2022-03-21 18:04] LABS: GLUCOSE 75 MG/DL (70-105); TOTAL PROTEIN 7.7 GM/DL (6.4-8.2)
[2022-03-21 18:05] LABS: CARBON DIOXIDE 22 MMOL/L (21-32)
[2022-03-21 18:06] LABS: BILIRUBIN,TOTAL 0.6 MG/DL (0.1-1.0)
[2022-03-21 18:08] LABS: ALKALINE PHOSPHATASE 78 U/L (40-136); CREATININE SERUM 1.78 MG/DL (0.60-1.30); GFR ESTIMATED 29
[2022-03-21 18:09] LABS: BUN/CREATININE RATIO 13
[2022-03-21 18:10] LABS: MAGNESIUM 1.8 MG/DL (1.6-2.4)
[2022-03-21 18:11] LABS: ALANINE AMINOTRANSFERASE 11 U/L (0-55)
--- NOTE | 2022-03-21 18:17 | Diagnostic Imaging Report ---
INDICATION: Covid-19 positive with cough and shortness of air. Time of Exam: 6:14 PM Comparison is made to prior chest 12/19/2015. Heart size is stable. Lungs are clear. No infiltrates are seen. There is no effusion or pneumothorax. IMPRESSION: No acute cardiopulmonary process is detected. Dictated by: Dictated on workstation # [id number]
[2022-03-21] MEDS ORDERED: BEBTELOVIMAB 175 MG/2 ML VIAL IV ONE (18:45)
[2022-03-21 19:34] VITALS: BP 106/85
== END 2022-03-21 20:49 | disposition home or self-care (01) ==
LOC: EDUNIT# 17:26 → ER 17:28
DX: U07.1 COVID-19 (principal)
CPT/HCPCS: 36415; 71045; 80053; 83735; 83880; 84484; 85025; 93005

== ENCOUNTER → 2022-06-01 | Outpatient (CLI) | payer MEDICARE, BC ==
[~2022-06-01] MED LIST changes: +RT-ALBUTEROL SULF 2.5 MG/3 ML PRE-MIX VIAL INH ONE
== END ==
LOC: RT 12:42
PROVIDERS: ATTEND Family Medicine
DX: J44.9 Chronic obstructive pulmonary disease, unspecified (principal); G47.33 Obstructive sleep apnea (adult) (pediatric)
CPT/HCPCS: 94060; 94726; 94729

== ENCOUNTER → 2022-06-23 | Outpatient (CLI) | payer MEDICARE, BC ==
[~2022-06-23] MED LIST changes: -RT-ALBUTEROL SULF 2.5 MG/3 ML PRE-MIX VIAL INH ONE
--- NOTE | 2022-06-23 16:46 | Diagnostic Imaging Report ---
EXAMINATION: CT chest without contrast. TECHNIQUE: Multiple contiguous axial images were obtained through the chest without the use of intravenous contrast. All CT scans use one or more of the following dose optimizing techniques: automated exposure control, MA and/or KvP adjustment based on patient size and exam type or iterative reconstruction. HISTORY: Shortness of breath and cough COMPARISON: 01/03/2021 FINDINGS: There is no edema or pneumonia. No pleural effusion. No pneumothorax. No suspicious nodules. There is mild right base atelectasis. There is no axillary or supraclavicular lymphadenopathy. There is no mediastinal lymphadenopathy. Heart size is normal. There are mild coronary artery calcifications. No pericardial effusion. Aorta is normal in caliber. Limited views of the upper abdomen show stable right adrenal myelolipoma. There are unchanged cysts in the kidneys. There are no suspicious osseus lesions. IMPRESSION: 1. Mild right base atelectasis. 2. Unchanged right adrenal myelolipoma. Dictated by: Dictated on workstation # [id number]
== END ==
LOC: RAD 13:45
PROVIDERS: ATTEND Family Medicine
DX: J44.9 Chronic obstructive pulmonary disease, unspecified (principal); J61 Pneumoconiosis due to asbestos and other mineral fibers; J98.11 Atelectasis; D17.79 Benign lipomatous neoplasm of other sites
CPT/HCPCS: 71250

== ENCOUNTER → 2022-07-25 | Outpatient (CLI) | payer MEDICARE, BC ==
--- NOTE | 2022-07-25 15:40 | Diagnostic Imaging Report ---
PROCEDURE: US Renal Bilateral. TECHNIQUE: Multiple real-time grayscale images were obtained over the kidneys in various projections bilaterally. INDICATION: Cronic kidney disease, stage IV. COMPARISON: Renal ultrasound of 07/16/2019. FINDINGS: The right kidney measures 10.8 cm in length. There are numerous simple and cortical base cysts throughout the right kidney. The largest measures 4.6 x 4.4 cm in the mid aspect and is stable since prior examination. No hydronephrosis or concerning solid renal mass. The left kidney measures approximately 10 cm in length. It also has numerous cortical base cysts present that are simple in appearance. The largest measures 6.2 x 4.4 cm and is stable in appearance since prior examination. No solid renal mass or hydronephrosis on left. IMPRESSION: 1. Bilateral simple renal cysts are stable. 2. No hydronephrosis. Dictated by: Dictated on workstation # [id number]
== END ==
LOC: RAD 09:00
PROVIDERS: ATTEND Internal Medicine Nephrology
DX: I12.9 Hypertensive chronic kidney disease with stage 1 through stage 4 chronic kidney disease, or unspecified chronic kidney disease (principal); N18.4 Chronic kidney disease, stage 4 (severe); E79.0 Hyperuricemia without signs of inflammatory arthritis and tophaceous disease; E21.2 Other hyperparathyroidism; E55.9 Vitamin D deficiency, unspecified; N28.1 Cyst of kidney, acquired
CPT/HCPCS: 76770

== ENCOUNTER → 2023-02-14 | Outpatient (CLI) | payer MEDICARE, BC ==
[~2023-02-14] MED LIST changes: +MONT-47 PO; -MONT10TA21 PO
--- NOTE | 2023-02-14 13:31 | Diagnostic Imaging Report ---
PROCEDURE: CT abdomen and pelvis without contrast. TECHNIQUE: Multiple contiguous axial images were obtained through the abdomen and pelvis without the use of intravenous contrast. Auto Exposure Controls were utilized during the CT exam to meet ALARA standards for radiation dose reduction. INDICATION: Abdominal mass follow-up. Correlation is made with prior CT from 08/28/2018. FINDINGS: Lung bases demonstrates linear atelectasis or scarring in the right middle lobe, lingula and right lower lobe. Liver contains a tiny low-attenuation in the right lobe, stable. Gallbladder surgically absent. There is no biliary ductal dilatation. The pancreas and spleen are unremarkable. Fatty lesion of the right adrenal gland measures 5.5 x 3.2 cm compared with 4.8 x 2.9 cm. This again is most suggestive of a myelolipoma. There are numerous rounded masses throughout both kidneys are most suggestive of cysts. There is no renal calculi or hydronephrosis. Aorta is nonaneurysmal. There is a fat-containing umbilical hernia. Bowel loops appear to be normal caliber and nonobstructed. There is some mild diverticulosis of the sigmoid. There is no ascites. Bladder is unremarkable. Right inguinal hernias again noted containing multiple small bowel loops. There is no strangulation. Uterus appears to be surgically absent. IMPRESSION: 1. Overall stable CT of the abdomen and pelvis without contrast apart from mild increase in size of the myolipoma of the right adrenal gland when compared with exam 5 years earlier. No acute feature is detected. Dictated by: Dictated on workstation # [id number]
== END ==
LOC: RAD 12:37
PROVIDERS: ATTEND Family Medicine
DX: E27.8 Other specified disorders of adrenal gland (principal)
CPT/HCPCS: 74176

== ENCOUNTER → 2023-04-03 | Outpatient (CLI) | payer MEDICARE, BC ==
--- NOTE | 2023-04-03 17:49 | Diagnostic Imaging Report ---
PROCEDURE: US Renal Bilateral. TECHNIQUE: Multiple real-time grayscale images were obtained over the kidneys in various projections bilaterally. INDICATION: Kidney lesions. CORRELATION is made with prior ultrasound from 07/25/2022. The right kidney measures 13.5 x 5.9 x 6.3 cm and the left kidney measures 10.7 x 6.3 x 5.6 cm. There are multiple large cysts involving the bilateral kidneys which appear to be fairly simple. The largest on the right is approximately 4.5 cm. The largest cyst on the left is approximately 7 cm. No solid masses are seen. No calculi or hydronephrosis is detected. IMPRESSION: Bilateral renal cystic disease. There is no hydronephrosis. Dictated by: Dictated on workstation # [id number]
== END ==
LOC: RAD 13:26
PROVIDERS: ATTEND Nurse Practitioner Family
DX: N28.1 Cyst of kidney, acquired (principal)
CPT/HCPCS: 76770

== ENCOUNTER → 2023-07-16 | Outpatient (CLI) | payer MEDICARE, BC ==
--- NOTE | 2023-07-16 15:08 | Diagnostic Imaging Report ---
INDICATION: Neck pain. COMPARISON: None FINDINGS: Frontal, lateral, and open-mouth radiographic views of the cervical spine were obtained. Cervical spine is seen down to the C7-T1 level on the lateral view. Evaluation of static alignment shows slight grade 1 retrolisthesis at C3-C4 and C4-C5. There is no evidence of jumped facets. Open-mouth view shows normal C1-C2 alignment. Vertebral body heights are maintained. There is no acute fracture. Moderate multilevel degenerative changes are noted and consistent with intervertebral disc height loss with anterior and posterior endplate osteophyte formations, greatest at the C3-C4 through C5-C6 levels. There is also multilevel facet arthropathy. The surrounding soft tissue structures are unremarkable. The included portions of the lung apices are clear. IMPRESSION: 1. No acute fracture or dislocation of the cervical spine. 2. Moderate multilevel degenerative changes. Dictated by: Dictated on workstation # [id number]
--- NOTE | 2023-07-16 17:49 | Diagnostic Imaging Report ---
EXAMINATION: Left shoulder radiographs, 4 views. COMPARISON: None. HISTORY: 78-year-old female, left shoulder pain. FINDINGS: There are prominent drooping osteophytes extending off the inferior aspect of the humeral head. The humeral head is normally positioned relative to the glenoid. There is at least mild to moderate glenohumeral joint space loss. The acromioclavicular joint is normally aligned. There are no prominent acromioclavicular degenerative changes. There is no acute fracture. There is chondrocalcinosis. IMPRESSION: 1. Advanced left glenohumeral arthritis with prominent osteophytes drooping off the inferior aspect of the humeral head. This is a feature which can be seen with calcium pyrophosphate dihydrate deposition disease. There is note of chondrocalcinosis present which would be a supportive finding. 2. Intact acromioclavicular joint. 3. No acute fracture or abnormal bone alignment. Dictated by: Dictated on workstation # [id number]
== END ==
LOC: RAD 12:53
PROVIDERS: ATTEND Family Medicine
DX: M19.012 Primary osteoarthritis, left shoulder (principal); M47.22 Other spondylosis with radiculopathy, cervical region
CPT/HCPCS: 72040; 73030

== ENCOUNTER 2023-08-21 13:34 | Outpatient (RCR) | payer MEDICARE, BC | END 2023-08-23 | disposition home or self-care (01) | PROVIDERS: ATTEND Family Medicine | DX: M19.019 Primary osteoarthritis, unspecified shoulder (principal); M47.812 Spondylosis without myelopathy or radiculopathy, cervical region; I10 Essential (primary) hypertension ==